=== PATIENT | female | born 1950 | race Caucasian/White ===

== ENCOUNTER → 2016-09-20 | Outpatient (CLI) | payer OTHER, MEDICARE ==
[~2016-09-20] MED LIST: ASPEC81 PO; ATEN-173 PO; CPR500 PO; EYED IO; FOLI1TAB7 PO; LPT40 PO; MTH25 PO; PRD/1 PO; PRED-301 PO
[2016-09-20 09:33] LABS: BASO % 0.4 %; BASO ABS # 0.03 K/uL (0-0.2); COMPLETE YES; EOS % 1.2 %; IG% 0.4 %; LYMPH % 31.4 %; MEAN CELL VOLUME 92.8 fL (80-100); MEAN CORPUSCULAR HEMOGLOBIN 29.7 pg (25-34); MEAN PLATELET VOLUME 11.3 fL (7.4-10.4); MONO % 5.6 %; PLATELET COUNT 187 K/uL (130-400); RED BLOOD COUNT 4.74 M/uL (4.2-5.4); WHITE BLOOD COUNT 7.33 K/uL (4.8-10.8)
[2016-09-20 10:04] LABS: ALT/SGPT 23 U/L (12-78); AST/SGOT 9 U/L (15-37); BLOOD UREA NITROGEN 23 mg/dl (7-18); BUN/CREATININE RATIO 20.5 (10-20); CALCIUM 8.5 mg/dl (8.5-10.1); CARBON DIOXIDE 30 mmol/L (21-32); CHLORIDE 107 mmol/L (98-107); GLUCOSE 92 mg/dl (70-99); GLUCOSE,FASTING 92 mg/dl (70-99); POTASSIUM 4.1 mmol/L (3.5-5.1); SODIUM 143 mmol/L (136-145)
[2016-09-20 10:06] LABS: ALKALINE PHOSPHATASE 88 U/L (45-117)
[2016-09-20 10:20] LABS: ESTIMATED AVERAGE GLUCOSE 123 mg/dl; HA1C FLAG Normal (Normal)
[2016-09-23 14:33] LABS: MYELOPEROXIDASE AB <1.0 AI (<1.0)
== END ==
LOC: C.LAB1850 08:30
PROVIDERS: ATTEND Family Medicine
DX: H15.091 Other scleritis, right eye (principal); Z79.899 Other long term (current) drug therapy; M31.7 Microscopic polyangiitis; R76.8 Other specified abnormal immunological findings in serum; R79.89 Other specified abnormal findings of blood chemistry

== ENCOUNTER → 2016-10-25 | Outpatient (CLI) | payer OTHER, MEDICARE ==
[2016-10-25 10:19] LABS: BASO % 0.3 %; BASO ABS # 0.02 K/uL (0-0.2); COMPLETE YES; EOS % 7.9 %; HEMATOCRIT 46.1 % (37-47); IG% 0.2 %; LYMPH % 21.6 %; LYMPH ABS # 1.32 K/uL (1.2-3.4); MEAN CELL VOLUME 94.3 fL (80-100); MEAN CORPUSCULAR HEMOGLOBIN 30.1 pg (25-34); MEAN CORPUSCULAR HGB CONC 31.9 g/dl (32-36); MEAN PLATELET VOLUME 11.6 fL (7.4-10.4); MONO % 6.5 %; NEUT % 63.5 %; PLATELET COUNT 183 K/uL (130-400); RED BLOOD COUNT 4.89 M/uL (4.2-5.4); WHITE BLOOD COUNT 6.11 K/uL (4.8-10.8)
[2016-10-25 10:33] LABS: ALT/SGPT 119 U/L (12-78)
[2016-10-25 10:36] LABS: ALKALINE PHOSPHATASE 102 U/L (45-117); AST/SGOT 130 U/L (15-37)
== END | disposition home or self-care (01) ==
LOC: C.LAB1850 09:16
PROVIDERS: ATTEND Internal Medicine Rheumatology
DX: H15.009 Unspecified scleritis, unspecified eye (principal); Z79.899 Other long term (current) drug therapy; M31.7 Microscopic polyangiitis; R76.8 Other specified abnormal immunological findings in serum

== ENCOUNTER → 2016-11-10 | Outpatient (CLI) | payer OTHER, MEDICARE ==
[2016-11-10 10:43] LABS: BASO % 0.5 %; BASO ABS # 0.03 K/uL (0-0.2); COMPLETE YES; EOS % 1.3 %; HEMATOCRIT 48.1 % (37-47); IG% 0.2 %; LYMPH % 33.1 %; LYMPH ABS # 2.06 K/uL (1.2-3.4); MEAN CELL VOLUME 94.7 fL (80-100); MEAN CORPUSCULAR HEMOGLOBIN 29.1 pg (25-34); MEAN CORPUSCULAR HGB CONC 30.8 g/dl (32-36); MEAN PLATELET VOLUME 11.8 fL (7.4-10.4); MONO % 8.2 %; NEUT % 56.7 %; PLATELET COUNT 223 K/uL (130-400); RED BLOOD COUNT 5.08 M/uL (4.2-5.4); WHITE BLOOD COUNT 6.22 K/uL (4.8-10.8)
== END | disposition home or self-care (01) ==
LOC: C.LAB1850 08:53
PROVIDERS: ATTEND Internal Medicine Rheumatology
DX: H15.091 Other scleritis, right eye (principal); Z79.899 Other long term (current) drug therapy; M31.7 Microscopic polyangiitis; R76.8 Other specified abnormal immunological findings in serum

== ENCOUNTER → 2016-12-21 | Outpatient (CLI) | payer OTHER, MEDICARE ==
[2016-12-21 13:27] LABS: BASO % 0.2 %; BASO ABS # 0.02 K/uL (0-0.2); COMPLETE YES; EOS % 0.8 %; HEMATOCRIT 44.5 % (37-47); IG% 0.2 %; LYMPH % 23.1 %; LYMPH ABS # 1.93 K/uL (1.2-3.4); MEAN CELL VOLUME 94.1 fL (80-100); MEAN CORPUSCULAR HGB CONC 31.9 g/dl (32-36); MEAN PLATELET VOLUME 11.5 fL (7.4-10.4); MONO % 6.2 %; NEUT % 69.5 %; PLATELET COUNT 232 K/uL (130-400); RED BLOOD COUNT 4.73 M/uL (4.2-5.4); WHITE BLOOD COUNT 8.35 K/uL (4.8-10.8)
[2016-12-21 13:59] LABS: ALKALINE PHOSPHATASE 85 U/L (45-117); ALT/SGPT 30 U/L (12-78); AST/SGOT 12 U/L (15-37)
== END | disposition home or self-care (01) ==
LOC: C.LAB1850 11:49
PROVIDERS: ATTEND Internal Medicine Rheumatology
DX: H15.091 Other scleritis, right eye (principal); M31.7 Microscopic polyangiitis; R76.8 Other specified abnormal immunological findings in serum

== ENCOUNTER 2017-01-20 17:16 | Inpatient (IN) | payer OTHER, MEDICARE ==
[~2017-01-20] VITALS: Ht 165.1 cm; Wt 140.4 kg
[~2017-01-20 17:16] MED LIST changes: -ASPEC81 PO; -CPR500 PO; -FOLI1TAB7 PO; -LPT40 PO; -MTH25 PO; -PRD/1 PO
--- NOTE | 2017-01-20 18:00 | EMERGENCY ROOM VISIT NOTE ---
History Report prepared by Sandro: Redd Florence Under the Supervision of: Dr. Romulo Dubon M.D. First contact with patient: 17:46 Chief Complaint: CONFUSION Stated Complaint: CONFUSED Nursing Triage Summary: Patient ambulatory to triage with her friend. Patient states "I can't..." Friend states "She knows what she wants to say but she can't express it in words. She called me around 0930 while she was at work. She kept saying things that didn't make since. She hadn't eaten so she had some cookies. That seemed to normalize her. After work, she went home and took a nap, waking up with the same symptoms." Patient is not a diabetic. Patient is able to follow all commands. Patient is hard of hearing. History of Present Illness This HPI is mildly limited secondary to the patient's confusion. The patient is a 66 year old white female who presents to the ED with a cc of confusion beginning this morning. She is unable to state her past medical history, but she is taking Methotrexate. She is not on blood thinners. At this time, the patient was talking on the phone with her friend and her friend noticed that the patient seemed confused. She was having difficulty finding her words that she wanted to say. Currently, the patient states she feels fine. Positive right eye mass and healed wound on left lower extremity for which the patient [facility]. Negative fevers, shortness of breath, cough, sore throat, neck pain, recent falls, nausea, vomiting, diarrhea, leg pain/edema, chest pain, weakness, or numbness. Source of History: patient, friend History Limited By: AMS Onset: this morning Position: other (Global) Symptom Intensity: moderate Quality: other (Word searching) Timing: constant Associated Symptoms: No fevers, No sorethroat, No cough, No neck pain, No chest pain, No SOB, No nausea, No vomiting, No abdominal pain, No melena, No hematochezia, No diarrhea, No urinary symptoms, No weakness, No numbness Note: She has a mass to her right eye, and a healing wound on her left lower extremity. Review of Systems See HPI for pertinent positives and negatives. A total of ten systems were reviewed and were otherwise negative. Past Medical & Surgical Medical Problems: (1) CVA (cerebral vascular accident) Unable to obtain secondary to the patient's confusion. Family History Omitted secondary to the patient's age. Social History Smoking Status: Never Smoker Drug Use: none Marital Status: Housing Status: lives alone Occupation Status: employed Current/Historical Medications Scheduled Atenolol (Tenormin), 25 MG PO DAILY Folic Acid (Folvite), 1 MG PO DAILY Methotrexate (Methotrexate), 7.5 MG PO DAILY Prednisone (Prednisone), 5 MG PO DAILY Prednisone (Prednisone), 4 MG PO DIRECTED Allergies Coded Allergies: No Known Allergies (Verified , 01/20/17) Physical Exam Vital Signs Date Time Temp Pulse Resp B/P (MAP) Pulse Ox O2 Delivery O2 Flow Rate FiO2 01/20/17 20:35 97 25 01/20/17 20:05 87 17 01/20/17 20:00 87 20 154/92 98 Room Air 01/20/17 19:58 01/20/17 19:30 87 16 94 01/20/17 19:00 85 17 94 01/20/17 18:39 82 20 157/95 97 Room Air 01/20/17 18:18 83 01/20/17 18:10 Room Air 01/20/17 17:35 36.8 103 20 175/111 98 Room Air Physical Exam GENERAL: Awake, alert, well-appearing, NAD, follows commands, right hand dominant. HENT: Normocephalic, atraumatic. EYES: Normal conjunctiva. Sclera non-icteric. EOMI, PERRL at about 3 mm's. Visual acuity intact grossly to finger counting. She has a 1 cm x 0.5 cm x 0.25 cm raised mass at the 5 o'clock position of the right eye. NECK: Supple. No nuchal rigidity. FROM. RESPIRATORY: CTAB, no rhonchi, wheezing, crackles CARDIAC: RRR, no MRG ABDOMEN: Soft, NTND, BS+ MSK: No chest wall TTP, severe LE lymphedema, healing stage 1 ulcer over the left [place], 2+ pitting edema bilaterally. NEURO: GCS 15, CN 2-12 intact, moves all 4s on command, EOMI, 5/5 strength in upper and lower extremities, good finger to nose, no pronator drift. SKIN: No rash or jaundice noted. Medical Decision & Procedures ER Provider Diagnostic Interpretation: Radiology results as stated below per my review and radiologist interpretation: HEAD WITHOUT CONTRAST (CT) CLINICAL HISTORY: 66 years-old Female presenting with word finding difficulties, inappropriate, R eye mass. TECHNIQUE: Multidetector CT imaging of the head was performed without the use of intravenous contrast. IV contrast: None. A dose lowering technique was used consistent with the principles of ALARA (as low as reasonably achievable). COMPARISON: None. CT DOSE (mGy.cm): The estimated cumulative dose is 720.95 mGycm. FINDINGS: Billboard Installer topogram: Unremarkable. Ventricles and sulci normal in size. Hypoattenuation in the posterior left temporal lobe and left parietal lobe which involves both the white matter and overlying cortex. Mild mass effect on regional sulci noted. No associated hemorrhage. No hyperdense vessel is appreciated. No midline shift. No hemorrhage. No extra-axial fluid collection. Absence of the [place] left lens. Focus of calcification at the bilateral optic discs without evidence of mass lesion. Paranasal sinuses and mastoid air cells clear. Calvarium intact. IMPRESSION: 1. Findings suggestive of acute infarct in the left middle cerebral artery territory infarction. No associated hemorrhage. The report will be called/faxed according to standard departmental protocol. Electronically signed by: Anthony Roth M.D. 01/20/2017 7:56 PM Dictated Date/Time: 01/20/2017 7:52 PM SINGLE VIEW CHEST CLINICAL HISTORY: Strokelike symptoms. FINDINGS: An AP, portable, upright chest radiograph is obtained. No prior studies are available for comparison at the time of dictation. The examination is degraded by portable technique and patient rotation. The the heart is top normal for projection. The pulmonary vasculature is noncongested. There is mild bibasilar atelectasis. The lungs and pleural spaces are otherwise clear. No pneumothorax is seen. The skeletal structures are osteopenic. The bony thorax is grossly intact. IMPRESSION: No active disease in the chest. Electronically signed by: Edmond Balderas M.D. 01/20/2017 6:23 PM Dictated Date/Time: 01/20/2017 6:23 PM NECK ANGIO WITH CONTRAST CLINICAL HISTORY: 66 years-old Female presenting with confusion, difficulty speaking, concern for stroke. TECHNIQUE: Multidetector CT angiography of the neck was performed after the administration of intravenous contrast. 3-D volumetric and/or maximum intensity projection (MIP) images were subsequently reconstructed for review. IV contrast: 120 mL of Optiray 320. A dose lowering technique was used consistent with the principles of ALARA (as low as reasonably achievable). All measurements were calculated based on NASCET-like criteria. COMPARISON: None. CT DOSE (mGy.cm): The estimated cumulative dose is 1135.78 mGycm. FINDINGS: Billboard Installer topogram: Unremarkable. Atherosclerosis of the aortic arch. Three-vessel arch configuration. Bilateral common carotid arteries widely patent. Calcified atherosclerotic plaque at the bilateral carotid bulbs. Nonsignificant narrowing of the proximal right internal carotid artery by calcified atherosclerotic plaque (less than 25%). Remainder of the course of the right internal carotid artery is widely patent. Nonsignificant narrowing of the proximal left internal carotid artery by noncalcified atherosclerotic plaque (less than 25%). Remainder of the course of the left internal carotid artery widely patent. Origins of the bilateral vertebral arteries patent. No significant narrowing along their courses. Codominant vertebral arteries contribute to the vertebrobasilar system. IMPRESSION: Atherosclerosis without evidence of significant narrowing. No evidence of dissection, aneurysm, or focal occlusion. Electronically signed by: Anthony Roth M.D. 01/20/2017 8:01 PM Dictated Date/Time: 01/20/2017 7:[address] ANGIOGRAM OF THE BRAIN CLINICAL HISTORY: Speech and word finding difficulties. COMPARISON STUDY: Unenhanced CT scan of the brain dated 01/20/2017. TECHNIQUE: Following the IV administration of 120 cc of Optiray 320, CT angiogram of the brain was performed from the skull base to the vertex. Images are reviewed in the axial, sagittal, and coronal planes. 3-D MIPS images are created and assessed. IV contrast was administered without complication. A dose lowering technique was utilized adhering to the principles of ALARA. FINDINGS: Brain parenchyma: There is minimal periventricular microangiopathic disease. There is loss of anderson-white matter differentiation identified in the left temporoparietal region suggesting acute to subacute ischemia. A chronic lacunar infarct is noted in the left cerebellar hemisphere. No hemorrhage or mass effect is identified. There is no evidence of enhancing mass lesion on the angiogram phase images. No extra-axial fluid collection is seen. Ventricles, sulci, and cisterns: Normal in configuration. CT angiogram of the brain: Atherosclerotic calcification is noted in the cavernous carotid arteries. The internal carotid arteries are widely patent, as are the anterior and middle cerebral arteries. The vertebrobasilar system and posterior cerebral arteries are widely patent. The left vertebral artery is dominant. There is no aneurysm, high-grade stenosis, or focal vessel cutoff identified throughout the intracranial circulation. Dural sinuses: Clear as visualized. Orbits: The bony orbits are intact. The orbital contents are normal as visualized. There is a left ocular lens implant. Sinuses and mastoids: Trace mucosal thickening is seen in the maxillary antra. The remaining paranasal sinuses and mastoid air cells are clear. Calvarium: Unremarkable. IMPRESSION: 1. There is loss of anderson-white matter differentiation in the left temporoparietal region consistent with acute to subacute ischemia. 2. No hemorrhage is seen. 3. Unremarkable CT angiogram of the brain. Electronically signed by: Edmond Balderas M.D. 01/20/2017 8:06 PM Dictated Date/Time: 01/20/2017 7:52 PM Laboratory Results 01/20/17 18:00 Red Blood Count 4.76, Mean Corpuscular Volume 96.6, Mean Corpuscular Hemoglobin 31.1, Mean Corpuscular Hemoglobin Concent 32.2, Mean Platelet Volume 11.2, Neutrophils (%) (Auto) 68.0, Lymphocytes (%) (Auto) 24.0, Monocytes (%) (Auto) 5.9, Eosinophils (%) (Auto) 1.7, Basophils (%) (Auto) 0.1, Neutrophils # (Auto) 4.88, Lymphocytes # (Auto) 1.72, Monocytes # (Auto) 0.42, Eosinophils # (Auto) 0.12, Basophils # (Auto) 0.01 01/20/17 18:00 Test 01/20/17 17:54 01/20/17 18:00 01/20/17 18:11 01/20/17 18:15 Bedside Glucose 97 mg/dl (70-90) White Blood Count 7.17 K/uL (4.8-10.8) Red Blood Count 4.76 M/uL (4.2-5.4) Hemoglobin 14.8 g/dL (12.0-16.0) Hematocrit 46.0 % (37-47) Mean Corpuscular Volume 96.6 fL (80-100) Mean Corpuscular Hemoglobin 31.1 pg (25-34) Mean Corpuscular Hemoglobin Concent 32.2 g/dl (32-36) Platelet Count 178 K/uL (130-400) Mean Platelet Volume 11.2 fL (7.4-10.4) Neutrophils (%) (Auto) 68.0 % Lymphocytes (%) (Auto) 24.0 % Monocytes (%) (Auto) 5.9 % Eosinophils (%) (Auto) 1.7 % Basophils (%) (Auto) 0.1 % Neutrophils # (Auto) 4.88 K/uL (1.4-6.5) Lymphocytes # (Auto) 1.72 K/uL (1.2-3.4) Monocytes # (Auto) 0.42 K/uL (0.11-0.59) Eosinophils # (Auto) 0.12 K/uL (0-0.5) Basophils # (Auto) 0.01 K/uL (0-0.2) RDW Standard Deviation 54.8 fL (36.4-46.3) RDW Coefficient of Variation 15.7 % (11.5-14.5) Immature Granulocyte % (Auto) 0.3 % Immature Granulocyte # (Auto) 0.02 K/uL (0.00-0.02) Anion Gap 5.0 mmol/L (3-11) Est Creatinine Clear Calc Drug Dose 64.2 ml/min Estimated GFR () 54.5 Estimated GFR (Non- 47.1 BUN/Creatinine Ratio 12.2 (10-20) Calcium Level 8.7 mg/dl (8.5-10.1) Total Bilirubin 0.8 mg/dl (0.2-1) Direct Bilirubin 0.2 mg/dl (0-0.2) Aspartate Amino Transf (AST/SGOT) 11 U/L (15-37) Alanine Aminotransferase (ALT/SGPT) 21 U/L (12-78) Alkaline Phosphatase 97 U/L (45-117) Total Protein 7.1 gm/dl (6.4-8.2) Albumin 3.3 gm/dl (3.4-5.0) Lipase 119 U/L (73-393) Lactic Acid Level 1.8 mmol/L (0.4-2.0) Bedside Troponin I < 0.030 ng/ml (0-0.045) Test 01/20/17 18:29 Venous Blood pH 7.40 (7.36-7.41) Venous Blood Partial Pressure CO2 46 mmHg (38.0-50.0) Venous Blood Partial Pressure O2 38 mmHg Venous Blood HCO3 28 mmol/L Venous Blood Oxygen Saturation 72.2 % Venous Blood Base Excess 2.2 mEq/L Laboratory results reviewed by me Medications Administered Medications (Trade) Dose Ordered Sig/Juan Route Start Time Stop Time Status Last Admin Dose Admin Aspirin (Aspirin Chew) 324 mg NOW STAT PO 01/20/17 20:09 01/20/17 20:10 DC 01/20/17 20:24 324 MG ECG Indication: altered mental status Rate (beats per minute): 90 Rhythm: normal sinus Findings: left axis deviation, other (Normal intervals, no other st abnormalities or t-wave inversions) ED Course 1745: The patient was evaluated in room A2. A complete history and physical exam was performed. 2008: I spoke [place]. José [place] [facility] [place]. We discussed the patient's case. He will be evaluating the patient for further management and care. Medical Decision The patient is a 66 year old white female who presents to the ED with a cc of confusion beginning this morning. Positive right eye mass and healed wound on left lower extremity for which the patient saw Dr. [facility]. Negative fevers, shortness of breath, cough, sore throat, neck pain, recent falls, nausea, vomiting, diarrhea, leg pain/edema, chest pain, weakness, or numbness. Triage Nursing notes reviewed. The patient's presentation and history were concerning for stroke, ICH, mass, metabolic abnormality, hyperglycemia, and UTI. Patient was seen and evaluated at the bedside. Of concern patient has had word finding difficulties since she spoke to a neighbor around 9:30 AM. Patient does seem to act in an inappropriate manner constantly laughing. Patient does have a GCS of 15 on commands. Patient's exam is fairly unremarkable although she does have again word finding difficulty and what appears to be an expressive aphasia. Also of note on physical exam patient is having a right eye mass that does not appear to be a pterygium. Patient was worked up from a stroke perspective but was well outside any sort of window for TPA as a code stroke was not called. Patient had imaging as well as blood work completed. Of note patient did have a CT that was concerning for an acute left MCA infarct without any hemorrhage. Patient's chest x-ray and troponin were negative. I spoke with the hospitalist who agreed the patient would benefit from further workup and admission. Patient was given a full dose aspirin. Medication Reconcilliation Current Medication List: was personally reviewed by me Blood Pressure Screening Patient's blood pressure: Elevated blood pressure Blood pressure disposition: Referred to PCP Consults Time Called: 2003 Consulting Physician: Dr. Estefanía KU Returned Call: 2007 Discussed the patient's case. The patient will be evaluated for further treatment and disposition. Impression Primary Impression: Acute ischemic left MCA stroke Additional Impressions: Confusion Expressive aphasia Scribe Attestation The scribe's documentation has been prepared under my direction and personally reviewed by me in its entirety. I confirm that the note above accurately reflects all work, treatment, procedures, and medical decision making performed by me. Departure Information Dispostion Being Evaluated By Hospitalist Referrals No Doctor, Assigned (PCP) Patient Instructions My [facility] Problem Qualifiers
--- NOTE | 2017-01-20 18:25 | DIAGNOSTIC IMAGING REPORT ---
SINGLE VIEW CHEST CLINICAL HISTORY: Strokelike symptoms. FINDINGS: An AP, portable, upright chest radiograph is obtained. No prior studies are available for comparison at the time of dictation. The examination is degraded by portable technique and patient rotation. The the heart is top normal for projection. The pulmonary vasculature is noncongested. There is mild bibasilar atelectasis. The lungs and pleural spaces are otherwise clear. No pneumothorax is seen. The skeletal structures are osteopenic. The bony thorax is grossly intact. IMPRESSION: No active disease in the chest. Electronically signed by: Edmond Balderas M.D. 01/20/2017 6:23 PM Dictated Date/Time: 01/20/2017 6:23 PM
[2017-01-20 18:39] LABS: VEN BLD GAS O2 SATURATION 72.2 %; VEN BLOOD GAS BASE EXCESS 2.2 mEq/L
[2017-01-20] MEDS ORDERED: PRD/1 PO (18:42)
[2017-01-20] MEDS ORDERED: MTH25 PO (18:42)
[2017-01-20] MEDS ORDERED: FOLI1TAB7 PO (18:42)
[2017-01-20 18:45] LABS: BUN/CREATININE RATIO 12.2 (10-20); CALCIUM 8.7 mg/dl (8.5-10.1); CREATININE 1.2 mg/dl (0.60-1.20); POTASSIUM 3.8 mmol/L (3.5-5.1)
[2017-01-20] MEDS ORDERED: OPTIRAY 320 IV PRN (18:45)
[2017-01-20 19:56] LABS: BASO % 0.1 %; BASO ABS # 0.01 K/uL (0-0.2); COMPLETE YES; EOS % 1.7 %; IG% 0.3 %; LYMPH ABS # 1.72 K/uL (1.2-3.4); MEAN CELL VOLUME 96.6 fL (80-100); MEAN CORPUSCULAR HEMOGLOBIN 31.1 pg (25-34); MEAN CORPUSCULAR HGB CONC 32.2 g/dl (32-36); MEAN PLATELET VOLUME 11.2 fL (7.4-10.4); MONO % 5.9 %; PLATELET COUNT 178 K/uL (130-400); RED BLOOD COUNT 4.76 M/uL (4.2-5.4); WHITE BLOOD COUNT 7.17 K/uL (4.8-10.8)
--- NOTE | 2017-01-20 19:57 | DIAGNOSTIC IMAGING REPORT ---
HEAD WITHOUT CONTRAST (CT) CLINICAL HISTORY: 66 years-old Female presenting with word finding difficulties, inappropriate, R eye mass. TECHNIQUE: Multidetector CT imaging of the head was performed without the use of intravenous contrast. IV contrast: None. A dose lowering technique was used consistent with the principles of ALARA (as low as reasonably achievable). COMPARISON: None. CT DOSE (mGy.cm): The estimated cumulative dose is 720.95 mGycm. FINDINGS: Construction Project Manager topogram: Unremarkable. Ventricles and sulci normal in size. Hypoattenuation in the posterior left temporal lobe and left parietal lobe which involves both the white matter and overlying cortex. Mild mass effect on regional sulci noted. No associated hemorrhage. No hyperdense vessel is appreciated. No midline shift. No hemorrhage. No extra-axial fluid collection. Absence of the [place] left lens. Focus of calcification at the bilateral optic discs without evidence of mass lesion. Paranasal sinuses and mastoid air cells clear. Calvarium intact. IMPRESSION: 1. Findings suggestive of acute infarct in the left middle cerebral artery territory infarction. No associated hemorrhage. The report will be called/faxed according to standard departmental protocol. Electronically signed by: Anthony Roth M.D. 01/20/2017 7:56 PM Dictated Date/Time: 01/20/2017 7:52 PM
--- NOTE | 2017-01-20 20:03 | DIAGNOSTIC IMAGING REPORT ---
NECK ANGIO WITH CONTRAST CLINICAL HISTORY: 66 years-old Female presenting with confusion, difficulty speaking, concern for stroke. TECHNIQUE: Multidetector CT angiography of the neck was performed after the administration of intravenous contrast. 3-D volumetric and/or maximum intensity projection (MIP) images were subsequently reconstructed for review. IV contrast: 120 mL of Optiray 320. A dose lowering technique was used consistent with the principles of ALARA (as low as reasonably achievable). All measurements were calculated based on NASCET-like criteria. COMPARISON: None. CT DOSE (mGy.cm): The estimated cumulative dose is 1135.78 mGycm. FINDINGS: Food Preparation Supervisor topogram: Unremarkable. Atherosclerosis of the aortic arch. Three-vessel arch configuration. Bilateral common carotid arteries widely patent. Calcified atherosclerotic plaque at the bilateral carotid bulbs. Nonsignificant narrowing of the proximal right internal carotid artery by calcified atherosclerotic plaque (less than 25%). Remainder of the course of the right internal carotid artery is widely patent. Nonsignificant narrowing of the proximal left internal carotid artery by noncalcified atherosclerotic plaque (less than 25%). Remainder of the course of the left internal carotid artery widely patent. Origins of the bilateral vertebral arteries patent. No significant narrowing along their courses. Codominant vertebral arteries contribute to the vertebrobasilar system. IMPRESSION: Atherosclerosis without evidence of significant narrowing. No evidence of dissection, aneurysm, or focal occlusion. Electronically signed by: Anthony Roth M.D. 01/20/2017 8:01 PM Dictated Date/Time: 01/20/2017 7:56 PM
--- NOTE | 2017-01-20 20:08 | DIAGNOSTIC IMAGING REPORT ---
CT ANGIOGRAM OF THE BRAIN CLINICAL HISTORY: Speech and word finding difficulties. COMPARISON STUDY: Unenhanced CT scan of the brain dated 01/20/2017. TECHNIQUE: Following the IV administration of 120 cc of Optiray 320, CT angiogram of the brain was performed from the skull base to the vertex. Images are reviewed in the axial, sagittal, and coronal planes. 3-D MIPS images are created and assessed. IV contrast was administered without complication. A dose lowering technique was utilized adhering to the principles of ALARA. FINDINGS: Brain parenchyma: There is minimal periventricular microangiopathic disease. There is loss of anderson-white matter differentiation identified in the left temporoparietal region suggesting acute to subacute ischemia. A chronic lacunar infarct is noted in the left cerebellar hemisphere. No hemorrhage or mass effect is identified. There is no evidence of enhancing mass lesion on the angiogram phase images. No extra-axial fluid collection is seen. Ventricles, sulci, and cisterns: Normal in configuration. CT angiogram of the brain: Atherosclerotic calcification is noted in the cavernous carotid arteries. The internal carotid arteries are widely patent, as are the anterior and middle cerebral arteries. The vertebrobasilar system and posterior cerebral arteries are widely patent. The left vertebral artery is dominant. There is no aneurysm, high-grade stenosis, or focal vessel cutoff identified throughout the intracranial circulation. Dural sinuses: Clear as visualized. Orbits: The bony orbits are intact. The orbital contents are normal as visualized. There is a left ocular lens implant. Sinuses and mastoids: Trace mucosal thickening is seen in the maxillary antra. The remaining paranasal sinuses and mastoid air cells are clear. Calvarium: Unremarkable. IMPRESSION: 1. There is loss of anderson-white matter differentiation in the left temporoparietal region consistent with acute to subacute ischemia. 2. No hemorrhage is seen. 3. Unremarkable CT angiogram of the brain. Electronically signed by: Edmond Balderas M.D. 01/20/2017 8:06 PM Dictated Date/Time: 01/20/2017 7:52 PM
[2017-01-20] MEDS ORDERED: ASPIRIN 81 MG CHEW PO STA (20:09)
[2017-01-20] MEDS ORDERED: MAGNESIUM HYDROXIDE SUSP 30 ML UDC PO PRN (20:45)
[2017-01-20] MEDS ORDERED: ALUMINUM/MAGNESIUM/SIMETH (MAALOX MAX) 30 ML UDC PO PRN (20:45)
[2017-01-20] MEDS ORDERED: POLYETHYLENE (MIRALAX) 17 GM PACK PO PRN (20:45)
[2017-01-20] MEDS ORDERED: ONDANSETRON INJ 2 MG/ML 2 ML VIAL IV PRN (20:45)
[2017-01-20] MEDS ORDERED: ACETAMINOPHEN 325 MG TAB PO PRN (20:45)
[2017-01-20] MEDS ORDERED: PHARMACIST DISCHARGE MED REC CONSULT PRN (21:00)
--- NOTE | 2017-01-20 21:55 | History and Physical ---
History & Physical Date & Time of Service: Jan 20, 2017 at 21:36 Chief Complaint: Confused Primary Care Physician: Pati Mcclellan MD History of Present Illness Source: patient 66 y/o F Hx RA, HTN, morbid obesity. Pt presents with acute dysphagia which occurred during the AM. She is having considerable difficulty with word finding although her comprehension appears only minimally impaired. She denies unilateral weakness, visual disturbances, headache, CP, SOB or palpitations. She has no history of prior CVA. A CT obtained in the ER reveals an acute L temporoparietal CVA. The pt was well out of the window for TPA on arrival to the hospital. Past Medical/Surgical History 1) HTN 2) RA 3) Morbidly obese Social History Smoking Status: Never Smoker Drug Use: none Marital Status: Occupational Status: employed Allergies Coded Allergies: No Known Allergies (Verified , 01/20/17) Home Medications Scheduled Atenolol (Tenormin), 25 MG PO DAILY Folic Acid (Folvite), 1 MG PO DAILY Methotrexate (Methotrexate), 7.5 MG PO DAILY Prednisone (Prednisone), 5 MG PO DAILY Prednisone (Prednisone), 4 MG PO DIRECTED Review of Systems Constitutional: No fever, No chills, No sweats Eyes: No worsening of vision, No eye pain ENT: No hearing loss, No unusual epistaxis, No nasal symptoms Respiratory: No cough, No sputum, No wheezing Cardiovascular: No chest pain, No orthopnea, No PND Abdomen: No pain, No nausea, No vomiting Musculoskeletal: No joint pain Genitourinary - Female: No dysuria, No urinary frequency, No urinary urgency, No urinary incontinence, No urinary retention, No hematuria Neurologic: + problem reported (Acute dysphasia), No memory loss, No paralysis , No weakness Psychiatric: No depression symptoms Endocrine: No fatigue Hematologic / Lymphatic: No abnormal bleeding/bruising Integumentary: No rash Allergic / Immunologic: No environmental allergies Physical Exam Vital Signs Date Time Temp Pulse Resp B/P (MAP) Pulse Ox O2 Delivery O2 Flow Rate FiO2 01/20/17 20:00 87 20 154/92 98 Room Air 01/20/17 19:58 01/20/17 19:30 87 16 94 01/20/17 19:00 85 17 94 01/20/17 18:39 82 20 157/95 97 Room Air 01/20/17 18:18 83 01/20/17 18:10 Room Air 01/20/17 17:35 36.8 103 20 175/111 98 Room Air General Appearance: WD/WN, no apparent distress, + pertinent finding (She cannot answer correctly to assess orientation - she can follow physical commands with some hesitation but cannot properly express herself - there are no additional motor or sensory deficits) Head: normocephalic Eyes: normal inspection ENT: normal ENT inspection, hearing grossly normal, TMs normal, pharynx normal Neck: supple, no JVD Respiratory/Chest: chest non-tender, lungs clear, normal breath sounds, no respiratory distress, no accessory muscle use Cardiovascular: regular rate, rhythm, no edema, no gallop, no JVD, no murmur, normal peripheral pulses Abdomen/GI: normal bowel sounds, non tender, soft Back: normal inspection, no CVA tenderness, no muscle spasm Extremities/Musculoskelatal: normal inspection, no calf tenderness, normal capillary refill, no pedal edema, normal range of motion Neurologic/Psych: + pertinent finding Skin: normal color, warm/dry, no rash Diagnostics Laboratory Results Results Past 24 Hours Test 01/20/17 17:54 01/20/17 18:00 01/20/17 18:11 01/20/17 18:15 Range/Units Bedside Glucose 97 70-90 mg/dl White Blood Count 7.17 4.8-10.8 K/uL Red Blood Count 4.76 4.2-5.4 M/uL Hemoglobin 14.8 12.0-16.0 g/dL Hematocrit 46.0 37-47 % Mean Corpuscular Volume 96.6 80-100 fL Mean Corpuscular Hemoglobin 31.1 25-34 pg Mean Corpuscular Hemoglobin Concent 32.2 32-36 g/dl Platelet Count 178 130-400 K/uL Mean Platelet Volume 11.2 7.4-10.4 fL Neutrophils (%) (Auto) 68.0 % Lymphocytes (%) (Auto) 24.0 % Monocytes (%) (Auto) 5.9 % Eosinophils (%) (Auto) 1.7 % Basophils (%) (Auto) 0.1 % Neutrophils # (Auto) 4.88 1.4-6.5 K/uL Lymphocytes # (Auto) 1.72 1.2-3.4 K/uL Monocytes # (Auto) 0.42 0.11-0.59 K/uL Eosinophils # (Auto) 0.12 0-0.5 K/uL Basophils # (Auto) 0.01 0-0.2 K/uL RDW Standard Deviation 54.8 36.4-46.3 fL RDW Coefficient of Variation 15.7 11.5-14.5 % Immature Granulocyte % (Auto) 0.3 % Immature Granulocyte # (Auto) 0.02 0.00-0.02 K/uL Sodium Level 139 136-145 mmol/L Potassium Level 3.8 3.5-5.1 mmol/L Chloride Level 105 98-107 mmol/L Carbon Dioxide Level 29 21-32 mmol/L Anion Gap 5.0 3-11 mmol/L Blood Urea Nitrogen 15 7-18 mg/dl Creatinine 1.20 0.60-1.20 mg/dl Est Creatinine Clear Calc Drug Dose 64.2 ml/min Estimated GFR () 54.5 Estimated GFR (Non- 47.1 BUN/Creatinine Ratio 12.2 10-20 Random Glucose 100 70-99 mg/dl Calcium Level 8.7 8.5-10.1 mg/dl Total Bilirubin 0.8 0.2-1 mg/dl Direct Bilirubin 0.2 0-0.2 mg/dl Aspartate Amino Transf (AST/SGOT) 11 15-37 U/L Alanine Aminotransferase (ALT/SGPT) 21 12-78 U/L Alkaline Phosphatase 97 45-117 U/L Total Protein 7.1 6.4-8.2 gm/dl Albumin 3.3 3.4-5.0 gm/dl Lipase 119 73-393 U/L Lactic Acid Level 1.8 0.4-2.0 mmol/L Bedside Troponin I < 0.030 0-0.045 ng/ml Test 01/20/17 18:29 Range/Units Venous Blood pH 7.40 7.36-7.41 Venous Blood Partial Pressure CO2 46 38.0-50.0 mmHg Venous Blood Partial Pressure O2 38 mmHg Venous Blood HCO3 28 mmol/L Venous Blood Oxygen Saturation 72.2 % Venous Blood Base Excess 2.2 mEq/L Diagnostic Radiology CTA 1. There is loss of anderson-white matter differentiation in the left temporoparietal region consistent with acute to subacute ischemia. 2. No hemorrhage is seen. 3. Unremarkable CT angiogram of the brain. EKG NSR - L axis Impression Assessment and Plan 66 y/o F Hx RA, HTN, morbid obesity. Pt presents with acute dysphagia which occurred during the AM. She is having considerable difficulty with word finding although her comprehension appears only minimally impaired. She denies unilateral weakness, visual disturbances, headache, CP, SOB or palpitations. She has no history of prior CVA. A CT obtained in the ER reveals an acute L temporoparietal CVA. The pt was well out of the window for TPA on arrival to the hospital. 1) CVA - findings are confirmed on CTA - she is admitted with a CVA protocol - provided with ASA and Statin. She will be evaluated by the neurologist AM. No further studies are ordered for AM due to ER workup. Speech therapy requested. 2) RA - cont Prednisone - Can resume MTx on DC 3) HTN - Atenolol held in setting of CVA 4) Obesity - would benefit from nutritional counseling Full code - Heparin prophylaxis - total time for this admit including review of labs, meds, EKG, imaging - discussion with pt and ER attending - 35 min Level of Care Telemetry Resuscitation Status FULL RESUSCITATION VTE Prophylaxis VTE Risk Assessment Done? Y/N: Yes Risk Level: Moderate Given or contraindicated: Unfractionated heparin SQ
[2017-01-20 23:40] VITALS: Ht 165.1 cm; Wt 140.4 kg
[2017-01-20 23:44] VITALS: BP 164/93; PULSE 83; TEMP 36.9; O2SAT 95
[2017-01-21] VITALS (9 sets, daily range): BP systolic 126–183; BP diastolic 79–105; PULSE 74–91; TEMP 36.5–37.2; O2SAT 95–99
[2017-01-21 03:43] LABS: BASO % 0.2 %; BASO ABS # 0.01 K/uL (0-0.2); COMPLETE YES; EOS % 1.7 %; HEMATOCRIT 39.5 % (37-47); IG% 0.2 %; LYMPH % 27.7 %; MEAN CELL VOLUME 96.8 fL (80-100); MEAN CORPUSCULAR HEMOGLOBIN 31.9 pg (25-34); MEAN CORPUSCULAR HGB CONC 32.9 g/dl (32-36); MEAN PLATELET VOLUME 11.3 fL (7.4-10.4); MONO % 8.3 %; NEUT % 61.9 %; PLATELET COUNT 165 K/uL (130-400); RED BLOOD COUNT 4.08 M/uL (4.2-5.4); WHITE BLOOD COUNT 5.78 K/uL (4.8-10.8)
[2017-01-21 03:53] LABS: PARTIAL THROMBOPLASTIN RATIO 0.9; PROTHROMBIN TIME (PATIENT) 10.5 SECONDS (9.0-12.0)
[2017-01-21 03:59] LABS: BUN/CREATININE RATIO 11.6 (10-20); CALCIUM 8.4 mg/dl (8.5-10.1); CREATININE 1.1 mg/dl (0.60-1.20); POTASSIUM 4.6 mmol/L (3.5-5.1)
[2017-01-21 04:07] LABS: CHOLESTEROL/HDL RATIO 3.4
[2017-01-21] MEDS: HEPARIN SOD 5000 UNIT/0.5 ML CARP SQ SCH ×3 (05:52→21:47)
[2017-01-21 07:09] LABS: ESTIMATED AVERAGE GLUCOSE 126 mg/dl; HA1C FLAG Normal (Normal)
[2017-01-21] MEDS: ASPIRIN 325 MG ECTAB PO SCH (08:08)
[2017-01-21] MEDS: ATORVASTATIN 40 MG TAB PO SCH (08:08)
--- NOTE | 2017-01-21 09:40 | Neurology Consultation ---
Neurology Consultation Date of Consultation: Jan 21, 2017. Attending Physician: Gary José M.D. Primary Care Physician: Pati Mcclellan MD Reason for Consultation: Stroke History of Present Illness Source: hospital records The patient is a 66-year-old female who presented to the emergency department yesterday for further evaluation of acute onset word finding difficulty that occurred while she was speaking with a friend on the phone. She was found to have some difficulty with expressive speech but did not have associated weakness or other obvious neurological abnormalities at the time of her initial assessment in the emergency department. This patient's past medical history is significant for rheumatoid arthritis for which she is prescribed prednisone and methotrexate. History also significant for hypertension. Electrocardiogram revealed normal sinus rhythm with a heart rate of [address] of the head revealed no acute left MCA infarct involving parts of the left temporal and left parietal lobe extending to the cortex. I reviewed the images as well as the radiologist's interpretation of this study. There is no evidence of associated hemorrhage or edema. CT angiography of the head and neck were also completed and are unremarkable. No evidence of large vessel stenosis or occlusion. The patient continues to exhibit difficulty with expressive speech this morning and is unable to relay a reliable history of present illness. Past Medical/Surgical History Medical Problems: (1) Acute ischemic left MCA stroke Status: Acute (2) Confusion Status: Acute (3) Expressive aphasia Status: Acute (4) Laceration of lower extremity Status: Acute Family History The patient is unable to provide details regarding her family history in light of her aphasia Social History Drug Use: none Marital Status: Housing Status: lives alone Occupation Status: employed Allergies Coded Allergies: No Known Allergies (Verified , 01/20/17) Current Inpatient Medications Current Inpatient Medications Medications (Trade) Dose Ordered Sig/Juan Route Start Time Stop Time Status Last Admin Dose Admin Ioversol (Optiray 320) 100 ml UD PRN IV 01/20/17 18:45 01/24/17 18:44 Heparin Sodium (Porcine) (Heparin Sq 5000 Unit/0.5ml) 5,000 unit Q8 SQ 01/21/17 06:00 02/20/17 05:59 01/21/17 05:52 5,000 UNIT Acetaminophen (Tylenol Tab) 650 mg Q4H PRN PO 01/20/17 20:45 02/19/17 20:44 Al Hydrox/Mg Hydrox/Simethicone (Maalox Max Susp) 15 ml Q4H PRN PO 01/20/17 20:45 02/19/17 20:44 Magnesium Hydroxide (Milk Of Magnesia Susp) 30 ml Q12H PRN PO 01/20/17 20:45 02/19/17 20:44 Ondansetron HCl (Zofran Inj) 4 mg Q6H PRN IV 01/20/17 20:45 02/19/17 20:44 Aspirin (Ecotrin Tab) 325 mg QAM PO 01/21/17 09:00 02/20/17 08:59 01/21/17 08:08 325 MG Polyethylene (Miralax Powder Packet) 17 gm DAILY PRN PO 01/20/17 20:45 02/19/17 20:44 Atorvastatin Calcium (Lipitor Tab) 40 mg QAM PO 01/21/17 09:00 02/20/17 08:59 01/21/17 08:08 40 MG Miscellaneous Information (Pharmacist Discharge Med Rec Consult) 1 ea UD PRN N/A 01/20/17 21:00 02/19/17 20:59 Folic Acid (Folvite Tab) 1 mg DAILY PO 01/21/17 09:00 02/20/17 08:59 01/21/17 08:08 1 MG Prednisone (PredniSONE TAB) 5 mg DAILY PO 01/21/17 09:00 02/20/17 08:59 01/21/17 08:08 5 MG Review of Systems The patient is unable to provide reliable responses to questions pertaining to the review of systems in light of her aphasia which seems to affect both word finding and comprehension to a degree. Physical Exam Vital Signs (Past 24 Hrs): Date Time Temp Pulse Resp B/P (MAP) Pulse Ox O2 Delivery O2 Flow Rate FiO2 01/21/17 09:00 79 96 01/21/17 07:06 36.5 90 18 171/103 (125) 95 Room Air 01/21/17 04:21 36.9 74 18 126/79 (95) 99 Room Air 01/21/17 04:00 Room Air 01/20/17 23:44 36.9 83 20 164/93 (116) 95 Room Air 01/20/17 23:40 Room Air 01/20/17 23:05 82 16 01/20/17 22:35 85 15 149/82 96 Room Air 01/20/17 22:05 81 16 01/20/17 21:35 88 19 01/20/17 21:05 83 16 01/20/17 20:35 97 25 01/20/17 20:05 87 17 01/20/17 20:00 87 20 154/92 98 Room Air 01/20/17 19:58 01/20/17 19:30 87 16 94 01/20/17 19:00 85 17 94 01/20/17 18:39 82 20 157/95 97 Room Air 01/20/17 18:18 83 01/20/17 18:10 Room Air 01/20/17 17:35 36.8 103 20 175/111 98 Room Air The patient is a well-developed, well-nourished, elderly female. She is lying comfortably in bed. She is somewhat jocular and laughs spontaneously with attempts at providing answers to questions. Memory cannot be assessed due to her aphasia. Attention is normal. The patient has significant difficulty with object naming. She is able to read simple text although does so quite slowly. She follows simple commands but seems to have some difficulty with comprehension as well. She correctly distinguishes left from right. She had mild difficulty performing simple calculations. Fund of knowledge and vocabulary cannot be reliably assessed in light of her aphasia. Visual yang grossly full to confrontation. There is decreased visual acuity for the right eye which has an associated tumor-like abnormality affecting the sclera of the right globe. Pupils equal round and reactive to light. Eye movements normal. Facial sensation intact bilaterally. There is normal facial symmetry and strength. No facial droop. Hearing intact to finger rub bilaterally. Palate elevates to midline. Shoulder shrug intact. Tongue protrudes to midline. Sensation intact in all 4 limbs to vibration, temperature, light touch, and proprioception. Deep tendon reflexes are intact and symmetrical for the arms and legs. Plantar responses downgoing. There is no dysdiadochokinesia or dysmetria with finger to nose or heel to powell bilaterally. The optic disc were the right eye cannot be adequately visualized. The optic disc and posterior segment for the left eye appears normal. No papilledema or hemorrhages. Carotid pulses normal bilaterally, no bruits to auscultation. Gait and station normal. Muscle strength and tone normal for the arms and legs bilaterally. No atrophy. No abnormal movements appreciated. Laboratory Results Past 24 Hours: 01/21/17 02:50 Red Blood Count 4.08, Mean Corpuscular Volume 96.8, Mean Corpuscular Hemoglobin 31.9, Mean Corpuscular Hemoglobin Concent 32.9, Mean Platelet Volume 11.3, Neutrophils (%) (Auto) 61.9, Lymphocytes (%) (Auto) 27.7, Monocytes (%) (Auto) 8.3, Eosinophils (%) (Auto) 1.7, Basophils (%) (Auto) 0.2, Neutrophils # (Auto) 3.58, Lymphocytes # (Auto) 1.60, Monocytes # (Auto) 0.48, Eosinophils # (Auto) 0.10, Basophils # (Auto) 0.01 01/21/17 02:50 Test 01/20/17 17:54 01/20/17 18:00 01/20/17 18:11 01/20/17 18:15 Bedside Glucose 97 mg/dl (70-90) Estimated Average Glucose 126 mg/dl Hemoglobin A1c 6.0 % (4.5-5.6) Total Bilirubin 0.8 mg/dl (0.2-1) Direct Bilirubin 0.2 mg/dl (0-0.2) Aspartate Amino Transf (AST/SGOT) 11 U/L (15-37) Alanine Aminotransferase (ALT/SGPT) 21 U/L (12-78) Alkaline Phosphatase 97 U/L (45-117) Total Protein 7.1 gm/dl (6.4-8.2) Albumin 3.3 gm/dl (3.4-5.0) Lipase 119 U/L (73-393) Lactic Acid Level 1.8 mmol/L (0.4-2.0) Bedside Troponin I < 0.030 ng/ml (0-0.045) Test 01/20/17 18:29 01/21/17 02:50 Venous Blood pH 7.40 (7.36-7.41) Venous Blood Partial Pressure CO2 46 mmHg (38.0-50.0) Venous Blood Partial Pressure O2 38 mmHg Venous Blood HCO3 28 mmol/L Venous Blood Oxygen Saturation 72.2 % Venous Blood Base Excess 2.2 mEq/L White Blood Count 5.78 K/uL (4.8-10.8) Red Blood Count 4.08 M/uL (4.2-5.4) Hemoglobin 13.0 g/dL (12.0-16.0) Hematocrit 39.5 % (37-47) Mean Corpuscular Volume 96.8 fL (80-100) Mean Corpuscular Hemoglobin 31.9 pg (25-34) Mean Corpuscular Hemoglobin Concent 32.9 g/dl (32-36) Platelet Count 165 K/uL (130-400) Mean Platelet Volume 11.3 fL (7.4-10.4) Neutrophils (%) (Auto) 61.9 % Lymphocytes (%) (Auto) 27.7 % Monocytes (%) (Auto) 8.3 % Eosinophils (%) (Auto) 1.7 % Basophils (%) (Auto) 0.2 % Neutrophils # (Auto) 3.58 K/uL (1.4-6.5) Lymphocytes # (Auto) 1.60 K/uL (1.2-3.4) Monocytes # (Auto) 0.48 K/uL (0.11-0.59) Eosinophils # (Auto) 0.10 K/uL (0-0.5) Basophils # (Auto) 0.01 K/uL (0-0.2) RDW Standard Deviation 54.7 fL (36.4-46.3) RDW Coefficient of Variation 15.7 % (11.5-14.5) Immature Granulocyte % (Auto) 0.2 % Immature Granulocyte # (Auto) 0.01 K/uL (0.00-0.02) Prothrombin Time 10.5 SECONDS (9.0-12.0) Prothromb Time International Ratio 1.0 (0.9-1.1) Activated Partial Thromboplast Time 23.6 SECONDS (21.0-31.0) Partial Thromboplastin Ratio 0.9 Anion Gap 5.0 mmol/L (3-11) Est Creatinine Clear Calc Drug Dose 73.3 ml/min Estimated GFR () 60.6 Estimated GFR (Non- 52.3 BUN/Creatinine Ratio 11.6 (10-20) Calcium Level 8.4 mg/dl (8.5-10.1) Triglycerides Level 163 mg/dl (0-150) Cholesterol Level 144 mg/dl (0-200) HDL Cholesterol 42 mg/dl LDL Cholesterol, Calculated 69 mg/dl VLDL Cholesterol, Calculated 33 mg/dl Cholesterol/HDL Ratio 3.4 Impression Acute left MCA territory infarct involving elements of the left parietal and temporal lobe extending to the cortex and producing an aphasia without associated hemiparesis. There is no evidence of large vessel thrombosis or occlusive lesion on CT angiography of the head or neck distribution in size of stroke seems suggestive of an embolic etiology. No known history of atrial fibrillation, however. Other potential etiologies including thrombophilia and PFO not excluded. Plan An MRI of the brain would be useful if possible. However, it appears as if this order was canceled for some reason. If the patient is unable to have a brain MRI then I would recommend a repeat CT of the head to be completed this evening to assess the evolution and extent of her acute infarct. Again, a brain MRI would be preferred if possible. This patient should also have a trans-thoracic echocardiogram with bubble study to evaluate for possible PFO. If the results are inconclusive that it may be of value to proceed with a transesophageal echocardiogram. A hypercoagulable/thrombophilia profile should also be obtained in this patient including lupus anticoagulant and other related labs Consultations with speech therapy/PT/OT I agree with use of daily aspirin for stroke risk reduction unless an indication for anticoagulation such as atrial fibrillation is identified. I've no further immediate recommendations for this patient. Please contact me if I may be of further assistance.
--- NOTE | 2017-01-21 14:35 | DIAGNOSTIC IMAGING REPORT ---
CT HEAD WITHOUT CONTRAST (CT) CLINICAL HISTORY: Stroke. Follow-up study. COMPARISON STUDY: Noncontrast head CT dated 01/20/2017 TECHNIQUE: Axial CT of the brain is performed from the vertex to the skull base. IV contrast was not administered for this examination. A dose lowering technique was utilized adhering to the principles of ALARA. CT DOSE: 537.48 mGy.cm FINDINGS: No intra or extra-axial mass lesions are visualized. There is a left parietal hypodensity, consistent with a acute/subacute infarct there is no evidence of acute hemorrhage. There is no evidence of midline shift.. This remain similar in appearance to the prior study. There are patchy white matter hypodensities likely on a small vessel basis. There is a stable lacunar infarct within the left cerebellar hemisphere. There is no evidence of pathologic ventricular dilatation. There is no evidence of acute sinusitis IMPRESSION: 1. No change from the preceding study. No change in the appearance of the left parietal lobe infarct. No evidence of acute hemorrhage. Electronically signed by: Jamaal De Guzman M.D. 01/21/2017 2:33 PM Dictated Date/Time: 01/21/2017 2:31 PM
--- NOTE | 2017-01-21 20:08 | Hospitalist Progress Note ---
Hospitalist Progress Note Date of Service Jan 21, 2017. Subjective Pt evaluation today including: conversation w/ patient, physical exam, conversation w/ application support consultant (Neuro) Pt still having significant difficulty finding the right words and often replacing words. Friends present with her confirm that she is not normally like this. She has perfect understanding of what I explain to her about her condition. She refused MRI today and says she would absolutely refuse NATE -she is terrified of any procedures. SHe has never had a colonoscopy because of this. SHe has never had GI bleeding and no h/o any serious bleeding. Denies any h/o SOB, CP, palpitations or rapid heart beat All Other Systems: Reviewed and Negative Objective Vital Signs No events on telemetry, remains in NSR Date Time Temp Pulse Resp B/P (MAP) Pulse Ox O2 Delivery O2 Flow Rate FiO2 01/21/17 15:42 37.2 84 18 133/83 (100) 95 Room Air 01/21/17 12:30 Room Air 01/21/17 11:30 36.6 85 20 174/105 (128) 97 183/92 (122) 01/21/17 09:00 79 96 01/21/17 07:45 Room Air 01/21/17 07:06 36.5 90 18 171/103 (125) 95 Room Air 01/21/17 04:21 36.9 74 18 126/79 (95) 99 Room Air 01/21/17 04:00 Room Air 01/20/17 23:44 36.9 83 20 164/93 (116) 95 Room Air 01/20/17 23:40 Room Air 01/20/17 23:05 82 16 01/20/17 22:35 85 15 149/82 96 Room Air 01/20/17 22:05 81 16 01/20/17 21:35 88 19 01/20/17 21:05 83 16 01/20/17 20:35 97 25 01/20/17 20:05 87 17 01/20/17 20:00 87 20 154/92 98 Room Air Physical Exam General Appearance: WD/WN, no apparent distress, + obese (sitting in chair) Eyes: + pertinent finding (right eye with large medial mass in sclera with blue -brown coloration) ENT: hearing grossly normal, pharynx normal Neck: trachea midline Respiratory/Chest: lungs clear, normal breath sounds, no respiratory distress, no accessory muscle use Cardiovascular: regular rate, rhythm, no edema, no gallop, no murmur Abdomen: normal bowel sounds, non tender, soft (and obese) Extremities: no calf tenderness, + pertinent finding (lipidemia, chronic venous stasis changes and crusted dry skin with small area of open wound left lateral leg) Neurologic/Psychiatric: alert, normal mood/affect, + pertinent finding ( expressive aphasia, no motor deficits) Skin: normal color, warm/dry, no rash Laboratory Results Last 24 Hours Test 01/21/17 02:50 White Blood Count 5.78 K/uL Red Blood Count 4.08 M/uL Hemoglobin 13.0 g/dL Hematocrit 39.5 % Mean Corpuscular Volume 96.8 fL Mean Corpuscular Hemoglobin 31.9 pg Mean Corpuscular Hemoglobin Concent 32.9 g/dl Platelet Count 165 K/uL Mean Platelet Volume 11.3 fL Neutrophils (%) (Auto) 61.9 % Lymphocytes (%) (Auto) 27.7 % Monocytes (%) (Auto) 8.3 % Eosinophils (%) (Auto) 1.7 % Basophils (%) (Auto) 0.2 % Neutrophils # (Auto) 3.58 K/uL Lymphocytes # (Auto) 1.60 K/uL Monocytes # (Auto) 0.48 K/uL Eosinophils # (Auto) 0.10 K/uL Basophils # (Auto) 0.01 K/uL RDW Standard Deviation 54.7 fL RDW Coefficient of Variation 15.7 % Immature Granulocyte % (Auto) 0.2 % Immature Granulocyte # (Auto) 0.01 K/uL Prothrombin Time 10.5 SECONDS Prothromb Time International Ratio 1.0 Activated Partial Thromboplast Time 23.6 SECONDS Partial Thromboplastin Ratio 0.9 Sodium Level 139 mmol/L Potassium Level 4.6 mmol/L Chloride Level 105 mmol/L Carbon Dioxide Level 29 mmol/L Anion Gap 5.0 mmol/L Blood Urea Nitrogen 13 mg/dl Creatinine 1.10 mg/dl Est Creatinine Clear Calc Drug Dose 73.3 ml/min Estimated GFR () 60.6 Estimated GFR (Non- 52.3 BUN/Creatinine Ratio 11.6 Random Glucose 119 mg/dl Calcium Level 8.4 mg/dl Triglycerides Level 163 mg/dl Cholesterol Level 144 mg/dl HDL Cholesterol 42 mg/dl LDL Cholesterol, Calculated 69 mg/dl VLDL Cholesterol, Calculated 33 mg/dl Cholesterol/HDL Ratio 3.4 Assessment and Plan 66 y/o F Hx RA, HTN, morbid obesity. Pt presents with acute expressive aphasia. She is having considerable difficulty with word finding although her comprehension appears only minimally impaired. She denies unilateral weakness, visual disturbances, headache, CP, SOB or palpitations. She has no history of prior CVA. A CT obtained in the ER reveals an acute L temporoparietal CVA. The pt was well out of the window for TPA on arrival to the hospital. 1) CVA - findings are confirmed on CTA - No stenosis in head or neck on CTA head /neck. Repeat CT head today unchanged. Pt declines MRI. ECHO pending with bubble study. Pt absolutely would decline a NATE-very scared of all procedures. No A-fib on tele but suspect this could be embolic or paradoxical embolism. -continue Neuro checks -Appreciate Neuro consult -continue ASA and Statin -will need assistant terminal manager cardiac monitoring to assess for A-fib if none here and no thrombus seen on TTE -PT/OT/Speech evaluations appreciated: 1.Continuation of current diet regular with thins 2.Safe swallow strategies (small bites, small, sips, slow rate) 3.Intermittent supervision with meals secondary to impulsivity 4.BOOTH OPERATOR will continue to follow and treat for receptive and receptive deficits 3-5 times a week while pt. remains in this facility. 5.Out patient speech therapy will be imperative for pt. to recover from speech deficits. 2) RA - cont Prednisone but should be 9mg daily-changed this - - Can resume MTx on DC 3) HTN - Atenolol held in setting of CVA for permissive HTN 4) Obesity - would benefit from nutritional counseling Full code - Heparin prophylaxis
--- NOTE | 2017-01-21 20:20 | ECHOCARDIOGRAM REPORT ---
*NOTICE TO RECEIVING [employer]ENCY This information is strictly Confidential and protected under [place] law. [place] law prohibits you from making any further disclosure of this information unless further disclosure is expressly permitted by the written consent of the person to whom it pertains or is authorized by law. A general authorization for the release of medical or other information is not sufficient for this purpose. Hospital accepts no responsibility if the information is made available to any other person, INCLUDING THE PATIENT. Interpretation Summary * Name: DONNELL MOBLEY Study Date: 01/21/2017 01:40 PM BP: 183/92 mmHg * Patient Location: .[facility]\S\N285\S\2 HR: 88 * : 1950 (M/d/yyyy) Gender: Female Height: 65 in * Age: 66 yrs Ethnicity: CA Weight: 312 lb * Ordering Physician: Robyn Carpio * Referring Physician: Self, Referred * Performed By: Colleen Parsons RCS * * Reason For Study: Cerebral Ischemia/ Embolus * BSA: 2.4 m2 * -- Conclusions -- * 1. Normal left ventricular size with hyperdynamic systolic function. EF 70-75%. No regional wall motion abnormalities. No left ventricular hypertrophy. Type 1 diastolic dysfunction. * 2. No visualized ASD or PFO via 2D imaging or color Doppler, however technically difficult study. No significant right to left inter atrial shunt noted following agitated saline injection. * 3. Sclerotic aortic valve without significant stenosis. * 4. Technically difficult study. * 5. No prior study available for comparison. Procedure Details * A saline contrast injection was performed to assess for cardiac shunting. * The injection was performed through an intravenous line in the right arm. * A total of 18 cc of agitated saline was given. Left Ventricle * Normal left ventricular size with hyperdynamic systolic function. EF 70-75%. No regional wall motion abnormalities. No left ventricular hypertrophy. Type 1 diastolic dysfunction. Right Ventricle * The right ventricle is normal in size and function. * The right ventricular systolic function is normal as assessed by tricuspid annular plane systolic excursion (TAPSE) (normal >1.5 cm). Atria * The left atrial size is normal. * Right atrial size is normal. * No visualized ASD or PFO via 2D imaging or color Doppler, however technically difficult study. No significant right to left inter atrial shunt noted following agitated saline injection. Mitral Valve * There is mild to moderate mitral annular calcification. * Significant mitral regurgitation is absent. Tricuspid Valve * The tricuspid valve is not well visualized. * There is no tricuspid stenosis. * Significant tricuspid regurgitation is absent. Aortic Valve * Sclerotic aortic valve without significant stenosis. * There is no significant aortic regurgitation. Pulmonic Valve * The pulmonary valve is inadequately visualized, but the Doppler data is adequate for interpretation. * There is no pulmonic valvular stenosis. * There is no significant pulmonary regurgitation. Great Vessels * The aortic root is normal size. * Ascending aorta of normal dimension Pericardium/Pleural * There is no pericardial effusion. Great Vessels * IVC not well visualized. MMode 2D Measurements and Calculations IVSd 1.0 cm LVIDd 4.8 cm LVIDs 3.0 cm LVPWd 1.1 cm IVS/LVPW 0.96 FS 38.8 % EDV(Teich) 109.1 ml ESV(Teich) 33.8 ml EF(Teich) 69.0 % EDV(cubed) 112.7 ml ESV(cubed) 25.9 ml EF(cubed) 77.0 % LV mass(C)d 188.2 grams LV mass(C)dI 78.7 grams/m\S\2 SV(Teich) 75.3 ml SI(Teich) 31.5 ml/m\S\2 SV(cubed) 86.8 ml SI(cubed) 36.3 ml/m\S\2 Ao root diam 3.2 cm Ao root area 8.1 cm\S\2 asc Aorta Diam 3.0 cm LVOT diam 2.1 cm LVOT area 3.5 cm\S\2 EDV(MOD-sp4) 73.4 ml ESV(MOD-sp4) 21.1 ml EF(MOD-sp4) 71.3 % EDV(MOD-sp2) 57.8 ml ESV(MOD-sp2) 13.6 ml EF(MOD-sp2) 76.5 % SV(MOD-sp4) 52.4 ml SI(MOD-sp4) 21.9 ml/m\S\2 SV(MOD-sp2) 44.2 ml SI(MOD-sp2) 18.5 ml/m\S\2 Doppler Measurements and Calculations MV E max pérez 59.9 cm/sec MV A max pérez 80.9 cm/sec MV E/A 0.74 MV dec time 0.21 sec Ao V2 max 133.3 cm/sec Ao max PG 7.1 mmHg Ao max PG (full) 1.1 mmHg CY(V,A) 3.2 cm\S\2 CY(V,D) 3.2 cm\S\2 LV V1 max PG 6.0 mmHg LV V1 max 122.9 cm/sec
[2017-01-22] VITALS (10 sets, daily range): BP systolic 129–183; BP diastolic 80–88; PULSE 74–82; TEMP 36.6–37.1; O2SAT 94–97
[2017-01-22] MEDS: HEPARIN SOD 5000 UNIT/0.5 ML CARP SQ SCH ×3 (05:38→21:12)
[2017-01-22 07:01] LABS: BASO % 0.5 %; BASO ABS # 0.03 K/uL (0-0.2); EOS % 1.1 %; HEMATOCRIT 39.2 % (37-47); IG% 0.4 %; LYMPH % 21.4 %; LYMPH ABS # 1.19 K/uL (1.2-3.4); MEAN CELL VOLUME 94.5 fL (80-100); MEAN CORPUSCULAR HEMOGLOBIN 31.6 pg (25-34); MEAN CORPUSCULAR HGB CONC 33.4 g/dl (32-36); MEAN PLATELET VOLUME 11.1 fL (7.4-10.4); MONO % 7.4 %; NEUT % 69.2 %; PLATELET COUNT 158 K/uL (130-400); RED BLOOD COUNT 4.15 M/uL (4.2-5.4); WHITE BLOOD COUNT 5.55 K/uL (4.8-10.8)
[2017-01-22 07:36] LABS: BUN/CREATININE RATIO 13.6 (10-20); CALCIUM 8.7 mg/dl (8.5-10.1); MAGNESIUM 1.8 mg/dl (1.8-2.4); POTASSIUM 4.2 mmol/L (3.5-5.1)
[2017-01-22 07:41] LABS: COMPLETE YES
[2017-01-22] MEDS: ASPIRIN 325 MG ECTAB PO SCH (08:03)
[2017-01-22] MEDS: ATORVASTATIN 40 MG TAB PO SCH (08:04)
[2017-01-22] MEDS: PREDNISONE PO SCH ×2 (08:04)
--- NOTE | 2017-01-22 10:51 | Neurology Progress Notes ---
Neurology Progress Note Date of Service Jan 22, 2017. Subjective Follow-up for stroke The patient continues to exhibit significant difficulty with word finding and perhaps some comprehension as well. She is sitting up in a chair across from a close friend who is also present during the time of my assessment of the patient this morning. She is aware that she is having some difficulty with her speech but does not seem very frustrated. She continues to smile and sometimes laughs with attempts at communication. She would like to get back to work as soon as possible. 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 She is having some problems with calculation as well. See examination below. The patient did complete a follow-up CT of the head as she will not tolerate MRI due to severe claustrophobia. I reviewed the images as well as a radiologist 's interpretation of this test. There has been no change in the previously identified left parietal lobe infarct. No hemorrhagic transformation or cytotoxic edema. Recently completed a transthoracic echocardiogram unremarkable. No PFO. Normal ejection fraction. No cardioembolic source. Objective Date Time Temp Pulse Resp B/P (MAP) Pulse Ox O2 Delivery O2 Flow Rate FiO2 01/22/17 08:02 36.7 78 20 129/82 (98) 97 Room Air 01/22/17 08:00 95 Room Air 01/22/17 04:00 Room Air 01/22/17 04:00 36.6 74 16 138/87 (104) Room Air 01/22/17 00:00 Room Air 01/21/17 23:53 36.7 79 20 143/84 (103) 96 Room Air 01/21/17 20:12 36.9 91 18 155/105 (122) 96 Room Air 01/21/17 20:00 95 Room Air 01/21/17 16:00 95 Room Air 01/21/17 15:42 37.2 84 18 133/83 (100) 95 Room Air 01/21/17 12:30 Room Air 01/21/17 11:30 36.6 85 20 174/105 (128) 97 183/92 (122) Last 24 Hours Test 01/22/17 06:32 White Blood Count 5.55 K/uL Red Blood Count 4.15 M/uL Hemoglobin 13.1 g/dL Hematocrit 39.2 % Mean Corpuscular Volume 94.5 fL Mean Corpuscular Hemoglobin 31.6 pg Mean Corpuscular Hemoglobin Concent 33.4 g/dl Platelet Count 158 K/uL Mean Platelet Volume 11.1 fL Neutrophils (%) (Auto) 69.2 % Lymphocytes (%) (Auto) 21.4 % Monocytes (%) (Auto) 7.4 % Eosinophils (%) (Auto) 1.1 % Basophils (%) (Auto) 0.5 % Neutrophils # (Auto) 3.84 K/uL Lymphocytes # (Auto) 1.19 K/uL Monocytes # (Auto) 0.41 K/uL Eosinophils # (Auto) 0.06 K/uL Basophils # (Auto) 0.03 K/uL RDW Standard Deviation 54.2 fL RDW Coefficient of Variation 15.7 % Immature Granulocyte % (Auto) 0.4 % Immature Granulocyte # (Auto) 0.02 K/uL Red Blood Cell Morphology Unremarkable Sodium Level 139 mmol/L Potassium Level 4.2 mmol/L Chloride Level 104 mmol/L Carbon Dioxide Level 30 mmol/L Anion Gap 5.0 mmol/L Blood Urea Nitrogen 14 mg/dl Creatinine 1.00 mg/dl Est Creatinine Clear Calc Drug Dose 79.2 ml/min Estimated GFR () 68.0 Estimated GFR (Non- 58.7 BUN/Creatinine Ratio 13.6 Random Glucose 119 mg/dl Calcium Level 8.7 mg/dl Magnesium Level 1.8 mg/dl Exam: As described above, the patient is sitting up in a chair. She appears comfortable. She is alert and oriented to person and hospital but continues to have significant difficulty with word finding/expressive speech. She is attentive although seems to have some problems with concentration as well likely related to her aphasia. She had difficulty with simple computations. Continues to have difficulty with object naming but did correctly name a pen but could not appropriately name specific parts of the object. He seemed to do well with discriminating left and right but did have problems following multistep commands. She correctly identified various fingers on both the left and right hand. Visual yang full to confrontation. Pupils equal round reactive to light and accommodation. Eye movements intact. There is no facial droop or facial asymmetry. Hearing intact. Tongue and palate midline. There is no pronator drift. There is no dysmetria with finger to nose or heel to powell. Gait and station are normal. Muscle strength and tone normal throughout. No abnormal movements observed. Current Inpatient Medications Medications (Trade) Dose Ordered Sig/Juan Route Start Time Stop Time Status Last Admin Dose Admin Ioversol (Optiray 320) 100 ml UD PRN IV 01/20/17 18:45 01/24/17 18:44 Heparin Sodium (Porcine) (Heparin Sq 5000 Unit/0.5ml) 5,000 unit Q8 SQ 01/21/17 06:00 02/20/17 05:59 01/22/17 05:38 5,000 UNIT Acetaminophen (Tylenol Tab) 650 mg Q4H PRN PO 01/20/17 20:45 02/19/17 20:44 01/21/17 11:19 650 MG Al Hydrox/Mg Hydrox/Simethicone (Maalox Max Susp) 15 ml Q4H PRN PO 01/20/17 20:45 02/19/17 20:44 Magnesium Hydroxide (Milk Of Magnesia Susp) 30 ml Q12H PRN PO 01/20/17 20:45 02/19/17 20:44 Ondansetron HCl (Zofran Inj) 4 mg Q6H PRN IV 01/20/17 20:45 02/19/17 20:44 Aspirin (Ecotrin Tab) 325 mg QAM PO 01/21/17 09:00 02/20/17 08:59 01/22/17 08:03 325 MG Polyethylene (Miralax Powder Packet) 17 gm DAILY PRN PO 01/20/17 20:45 02/19/17 20:44 Atorvastatin Calcium (Lipitor Tab) 40 mg QAM PO 01/21/17 09:00 02/20/17 08:59 01/22/17 08:04 40 MG Miscellaneous Information (Pharmacist Discharge Med Rec Consult) 1 ea UD PRN N/A 01/20/17 21:00 02/19/17 20:59 Folic Acid (Folvite Tab) 1 mg DAILY PO 01/21/17 09:00 02/20/17 08:59 01/22/17 08:03 1 MG Prednisone (PredniSONE TAB) 9 mg QAM PO 01/22/17 09:00 02/21/17 08:59 01/22/17 08:04 9 MG Impression Acute posterior left MCA stroke producing a mixed aphasia characterized by difficulty with both expressive and receptive speech. This patient seems to have problems with simple calculations as well. No left right confusion or finger anomia, however. She does not have an associated hemiparesis. Stroke etiology undetermined and could be broadly categorized as cryptogenic. Cardioembolism not excluded. Plan PT/OT/speech therapy Follow up with lab testing for thrombophilia when results available Continue with daily aspirin Consider outpatient cardiac Holter monitoring I do not think this patient will be able to return to work in her usual capacity in the near future given her ongoing language and cognitive dysfunction as a result of her recent stroke. This patient may follow-up with me in clinic No further recommendations at this time
--- NOTE | 2017-01-22 13:27 | Hospitalist Progress Note ---
Hospitalist Progress Note Date of Service Jan 22, 2017. Subjective Pt evaluation today including: conversation w/ patient, conversation w/ [facility] consultant (Neuro, Radiology, Rheum) Voiding: no voiding problems Pt really anxious to get home. SHe feels fine other than not being able to express herself. SHe is not eating much because she is upset about her condition. SHe has many friends and neighbors that will check on her. Her friend Joana present today is a IMPROVEMENT LEAD who will assist with coordinating for help to come to the house. Pt adamantly against going to acute rehab even if would qualify. Denies headache, no other concerns. All Other Systems: Reviewed and Negative Objective Vital Signs Date Time Temp Pulse Resp B/P (MAP) Pulse Ox O2 Delivery O2 Flow Rate FiO2 01/22/17 11:52 36.9 82 20 135/87 (103) 95 Room Air 01/22/17 08:02 36.7 78 20 129/82 (98) 97 Room Air 01/22/17 08:00 95 Room Air 01/22/17 04:00 Room Air 01/22/17 04:00 36.6 74 16 138/87 (104) Room Air 01/22/17 00:00 Room Air 01/21/17 23:53 36.7 79 20 143/84 (103) 96 Room Air 01/21/17 20:12 36.9 91 18 155/105 (122) 96 Room Air 01/21/17 20:00 95 Room Air 01/21/17 16:00 95 Room Air 01/21/17 15:42 37.2 84 18 133/83 (100) 95 Room Air 01/21/17 12:30 Room Air Physical Exam General Appearance: WD/WN, no apparent distress, + obese Eyes: + pertinent finding (right eye with large medial mass of sclera) ENT: hearing grossly normal, pharynx normal Neck: trachea midline Respiratory/Chest: lungs clear, normal breath sounds, no respiratory distress, no accessory muscle use Cardiovascular: regular rate, rhythm, no gallop, no murmur Abdomen: normal bowel sounds, non tender, soft Extremities: + pertinent finding (lipidemia, scaly skin) Neurologic/Psychiatric: alert, normal mood/affect, + pertinent finding (+ expressive aphasia, no motor deficits) Skin: no rash Laboratory Results Last 24 Hours Test 01/22/17 06:32 White Blood Count 5.55 K/uL Red Blood Count 4.15 M/uL Hemoglobin 13.1 g/dL Hematocrit 39.2 % Mean Corpuscular Volume 94.5 fL Mean Corpuscular Hemoglobin 31.6 pg Mean Corpuscular Hemoglobin Concent 33.4 g/dl Platelet Count 158 K/uL Mean Platelet Volume 11.1 fL Neutrophils (%) (Auto) 69.2 % Lymphocytes (%) (Auto) 21.4 % Monocytes (%) (Auto) 7.4 % Eosinophils (%) (Auto) 1.1 % Basophils (%) (Auto) 0.5 % Neutrophils # (Auto) 3.84 K/uL Lymphocytes # (Auto) 1.19 K/uL Monocytes # (Auto) 0.41 K/uL Eosinophils # (Auto) 0.06 K/uL Basophils # (Auto) 0.03 K/uL RDW Standard Deviation 54.2 fL RDW Coefficient of Variation 15.7 % Immature Granulocyte % (Auto) 0.4 % Immature Granulocyte # (Auto) 0.02 K/uL Red Blood Cell Morphology Unremarkable Sodium Level 139 mmol/L Potassium Level 4.2 mmol/L Chloride Level 104 mmol/L Carbon Dioxide Level 30 mmol/L Anion Gap 5.0 mmol/L Blood Urea Nitrogen 14 mg/dl Creatinine 1.00 mg/dl Est Creatinine Clear Calc Drug Dose 79.2 ml/min Estimated GFR () 68.0 Estimated GFR (Non- 58.7 BUN/Creatinine Ratio 13.6 Random Glucose 119 mg/dl Calcium Level 8.7 mg/dl Magnesium Level 1.8 mg/dl Assessment and Plan 66 y/o F Hx HTN, morbid obesity, and 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 Pt presents with acute expressive aphasia. She is having considerable difficulty with word finding although her comprehension appears only minimally impaired. She denies unilateral weakness, visual disturbances, headache, CP, SOB or palpitations. She has no history of prior CVA. A CT obtained in the ER reveals an acute L temporoparietal CVA. The pt was well out of the window for TPA on arrival to the hospital. 1) CVA - findings are confirmed on CTA - No stenosis or evidence of vasculitis in head or neck on CTA head/neck. Repeat CT head 24 hrs later unchanged. Pt declines MRI due to severe claustrophobia. I discussed the case with Radiology on phone w/ Dr. Delgado who reconfirms today that there is no evidence of vasculitis on the head CTA. ECHO with bubble study negative. No A-fib on tele but suspect this could be embolic or cryptogenic. Pt now willing to consider a NATE, and is willing to talk to Cardiology about it. I discussed the case at length today with her Workforce Planning Analyst Dr. Neal who will come to see the pt in the hospital. She advised that as long as CTA Head does not show any evidence of vasculitis, then not likely cause of her CVA. ESR not recommended to be tested at this point as per Rheum because if it is elevated, it wouldn't necessarily make the picture clearer. -continue Neuro checks -Appreciate Neuro consult-discussed case with Dr. Kaur again today who agrees there are no signs or symptoms at all of cerebral vasculitis, and that this is either embolic or cryptogenic -continue ASA and Statin -Consult to Cardiology to discuss getting NATE -will need prison cardiac monitoring to assess for A-fib if none here (and if she ends up declining NATE) -PT/OT/Speech evaluations appreciated: 1.Continuation of current diet regular with thins 2.Safe swallow strategies (small bites, small, sips, slow rate) 3.Intermittent supervision with meals secondary to impulsivity 4.MEDICAL FEE CLERK will continue to follow and treat for receptive and receptive deficits 3-5 times a week while pt. remains in this facility. 5.Out patient speech therapy will be imperative for pt. to recover from speech deficits. 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 Rodolfo Neal. Previously on induction therapy with 2 months of high dose prednisone and rituximab, now on maintenance therapy with low dose prednisone and MTX. Also followed by Drs. Walton and Oliver of Ophthalmology-all stable. No evidence of AUDITOR IN CHARGE vasculitis. - cont Prednisone 9mg daily - Can resume MTx on DC -continue routine f/u with Rheum, Ophthalmology -check UA to r/o vasculitis in tract -should be noted that previous notes and H&P noted her to have RA but confirmed in outpt records and with her Workforce Planning Analyst on the phone that this diagnosis was entered in ERROR -Rheumatology Dr. Neal says she will come by to make a social visit 3) HTN/Chronic diastolic CHF - Atenolol held in setting of CVA for permissive HTN. No signs of fluid overload -restart atenolol in future 4) Obesity - would benefit from nutritional counseling Full code - Heparin prophylaxis Dispo- to home after evaluation complete
[2017-01-22 15:28] LABS: URINE APPEARANCE CLEAR (CLEAR); URINE BILIRUBIN NEG (NEG); URINE COLOR YELLOW; URINE EPITHELIAL CELL AUTO 0-5 /lpf (0-5); URINE NITRITE NEG (NEG); URINE SPECIFIC GRAVITY 1.006 (1.000-1.030); UROBILINOGEN NEG (NEG); ZZUR CULT IF INDIC CLEAN CATCH YES
[2017-01-22 15:29] LABS: MANUAL MICROSCOPIC REQUIRED? NO; REVIEW REQ? NO
[2017-01-22] MEDS: CIPROFLOXACIN 500 MG TAB PO SCH (21:09)
[2017-01-23] VITALS (11 sets, daily range): BP systolic 131–152; BP diastolic 86–98; PULSE 77–90; TEMP 36.5–37.1; O2SAT 94–98
[2017-01-23] MEDS: HEPARIN SOD 5000 UNIT/0.5 ML CARP SQ SCH ×3 (06:23→21:10)
[2017-01-23 07:53] LABS: BASO % 0.2 %; BASO ABS # 0.01 K/uL (0-0.2); COMPLETE YES; EOS % 1.9 %; HEMATOCRIT 39.7 % (37-47); LYMPH % 30.6 %; LYMPH ABS # 1.61 K/uL (1.2-3.4); MEAN CELL VOLUME 96.6 fL (80-100); MEAN CORPUSCULAR HEMOGLOBIN 31.6 pg (25-34); MEAN CORPUSCULAR HGB CONC 32.7 g/dl (32-36); MONO % 11.6 %; NEUT % 55.7 %; PLATELET COUNT 152 K/uL (130-400); RED BLOOD COUNT 4.11 M/uL (4.2-5.4); WHITE BLOOD COUNT 5.26 K/uL (4.8-10.8)
[2017-01-23] MEDS: CIPROFLOXACIN 500 MG TAB PO SCH ×2 (08:04→21:03)
[2017-01-23] MEDS: ASPIRIN 325 MG ECTAB PO SCH (08:04)
[2017-01-23] MEDS: ATORVASTATIN 40 MG TAB PO SCH (08:04)
[2017-01-23] MEDS: PREDNISONE PO SCH ×2 (08:05)
[2017-01-23 08:31] LABS: BLOOD UREA NITROGEN 16 mg/dl (7-18); BUN/CREATININE RATIO 13.6 (10-20); CALCIUM 8.7 mg/dl (8.5-10.1); CARBON DIOXIDE 32 mmol/L (21-32); CHLORIDE 104 mmol/L (98-107); GLUCOSE 112 mg/dl (70-99); SODIUM 139 mmol/L (136-145)
[2017-01-23] MEDS ORDERED: MICONAZOLE NITRATE POWDER 43 GM EXT PRN (12:00)
[2017-01-23] MEDS ORDERED: NURSING VERBAL MED ORDER ONE (12:00)
[2017-01-23] MEDS ORDERED: CARBAMIDE PEROXIDE 6.5% 15 ML BTL OT ONE (13:55)
--- NOTE | 2017-01-23 14:14 | Hospitalist Progress Note ---
Hospitalist Progress Note Date of Service Jan 23, 2017. Subjective Pt evaluation today including: conversation w/ patient, physical exam Pt has c/o ears feeling full today, can't pop them. Otherwise no CP or palpitations, no SOB. Worked with Speech for a while today and did get frustrated towards the end with trying to write long sentences and repeat long phrases. No events on tele Neurologic: No weakness, No numbness/tingling All Other Systems: Reviewed and Negative Objective Vital Signs Date Time Temp Pulse Resp B/P (MAP) Pulse Ox O2 Delivery O2 Flow Rate FiO2 01/23/17 12:22 36.7 80 20 131/94 (106) 98 Room Air 01/23/17 12:00 97 Room Air 01/23/17 08:46 37.1 77 18 152/86 (108) 97 Room Air 01/23/17 08:00 98 Room Air 01/23/17 04:28 36.6 84 20 149/94 (112) 98 Room Air 01/23/17 04:00 95 Room Air 01/23/17 00:00 95 Room Air 01/22/17 23:29 36.9 80 18 132/85 (101) 95 Room Air 01/22/17 20:00 95 Room Air 01/22/17 19:42 37.1 80 20 146/80 (102) 95 Room Air 01/22/17 16:00 94 Room Air 01/22/17 15:36 36.6 81 18 183/88 (119) 96 Room Air Physical Exam General Appearance: WD/WN, no apparent distress, + obese Eyes: + pertinent finding (OD with large medial scleral mass) ENT: + pertinent finding (R>L cerumen impaction, cannot visualize right TM, left TM partially visualized but appears normal with normal light reflex) Neck: trachea midline Respiratory/Chest: lungs clear, normal breath sounds, no respiratory distress, no accessory muscle use Cardiovascular: regular rate, rhythm, no edema, no gallop, no murmur Abdomen: normal bowel sounds, non tender, soft Extremities: no calf tenderness Neurologic/Psychiatric: alert, normal mood/affect Skin: no rash Laboratory Results Last 24 Hours Test 01/22/17 15:10 01/23/17 07:35 01/23/17 08:37 Urine Color YELLOW Urine Appearance CLEAR Urine pH 7.0 Urine Specific [place] 1.006 Urine Protein NEG Urine Glucose (UA) NEG Urine Ketones NEG Urine Occult Blood NEG Urine Nitrite NEG Urine Bilirubin NEG Urine Urobilinogen NEG Urine Leukocyte Esterase MODERATE Urine WBC (Auto) 10-30 /hpf Urine RBC (Auto) 0-4 /hpf Urine Hyaline Casts (Auto) 0 /lpf Urine Epithelial Cells (Auto) 0-5 /lpf Urine Bacteria (Auto) 4+ White Blood Count 5.26 K/uL Red Blood Count 4.11 M/uL Hemoglobin 13.0 g/dL Hematocrit 39.7 % Mean Corpuscular Volume 96.6 fL Mean Corpuscular Hemoglobin 31.6 pg Mean Corpuscular Hemoglobin Concent 32.7 g/dl Platelet Count 152 K/uL Mean Platelet Volume 11.0 fL Neutrophils (%) (Auto) 55.7 % Lymphocytes (%) (Auto) 30.6 % Monocytes (%) (Auto) 11.6 % Eosinophils (%) (Auto) 1.9 % Basophils (%) (Auto) 0.2 % Neutrophils # (Auto) 2.93 K/uL Lymphocytes # (Auto) 1.61 K/uL Monocytes # (Auto) 0.61 K/uL Eosinophils # (Auto) 0.10 K/uL Basophils # (Auto) 0.01 K/uL RDW Standard Deviation 55.7 fL RDW Coefficient of Variation 15.8 % Immature Granulocyte % (Auto) 0.0 % Immature Granulocyte # (Auto) 0.00 K/uL Sodium Level 139 mmol/L Potassium Level mmol/L 4.3 mmol/L Chloride Level 104 mmol/L Carbon Dioxide Level 32 mmol/L Anion Gap 3.0 mmol/L Blood Urea Nitrogen 16 mg/dl Creatinine 1.20 mg/dl Est Creatinine Clear Calc Drug Dose 65.8 ml/min Estimated GFR () 54.5 Estimated GFR (Non- 47.1 BUN/Creatinine Ratio 13.6 Random Glucose 112 mg/dl Calcium Level 8.7 mg/dl Assessment and Plan 66 y/o F Hx HTN, morbid obesity, and 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 Pt presents with acute expressive aphasia. She is having considerable difficulty with word finding although her comprehension appears only minimally impaired. She denies unilateral weakness, visual disturbances, headache, CP, SOB or palpitations. She has no history of prior CVA. A CT obtained in the ER reveals an acute L temporoparietal CVA. The pt was well out of the window for TPA on arrival to the hospital. 1) CVA - findings are confirmed on CTA - No stenosis or evidence of vasculitis in head or neck on CTA head/neck. Repeat CT head 24 hrs later unchanged. Pt declines MRI due to severe claustrophobia. I discussed the case with Radiology on phone w/ Dr. Delgado who reconfirms that there is no evidence of vasculitis on the head CTA. ECHO with bubble study negative. No A-fib on tele but suspect this could be embolic or cryptogenic. I discussed the case at length today with her Manager Administrative Dr. Neal who came on a social visit to see the pt in the hospital. She advised that as long as CTA Head does not show any evidence of vasculitis, then not likely cause of her CVA. ESR not recommended to be tested at this point as per Rheum because if it is elevated, it wouldn't necessarily make the picture clearer. -continue Neuro checks -Appreciate Neuro consult-discussed case with Dr. Kaur again who agrees there are no signs or symptoms at all of cerebral vasculitis, and that this is either embolic or cryptogenic -continue ASA and Statin - NATE planned for Tuesday-Cardiology aware -will need shelter cardiac monitoring to assess for A-fib if none here and if no thrombus seen on ECHO -PT/OT/Speech evaluations appreciated: 1.Continuation of current diet regular with thins 2.Safe swallow strategies (small bites, small, sips, slow rate) 3.Intermittent supervision with meals secondary to impulsivity 4.MIDDLE SCHOOL TEACHER will continue to follow and treat for receptive and receptive deficits 3-5 times a week while pt. remains in this facility. 5.Out patient speech therapy will be imperative for pt. to recover from speech deficits. 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 Rodolfo Neal. Previously on induction therapy with 2 months of high dose prednisone and rituximab, now on maintenance therapy with low dose prednisone and MTX. Also followed by Drs. Walton and Oliver of Ophthalmology-all stable. No evidence of DIRECTIONAL DRILLER vasculitis. UA without blood, but does show UTI - cont Prednisone 9mg daily - Can resume MTx on Fridays (missed her dose this past Fri while hospitalized) -continue Folic acid 1 mg daily -continue routine f/u with Rheum, Ophthalmology -should be noted that previous notes and H&P noted her to have RA but confirmed in outpt records and with her Manager Administrative on the phone that this diagnosis was entered in ERROR 3) HTN/Chronic diastolic CHF - Atenolol held in setting of CVA for permissive HTN. No signs of fluid overload -restart atenolol in future if needed 4) Obesity - would benefit from nutritional counseling 5) Cerumen impaction R>L -Debrox drops and ear flush 6) UTI- abnormal UA and in setting of cryptogenic CVA, not sure if related or could be asymptomatic bacteriuria, however I am inclined to treat as she is immunosuppressed -continue Cipro 500mg po bid x 7 days -follow final Ur cx result Full code - Heparin prophylaxis Dispo- to home after evaluation complete
[2017-01-23] MEDS ORDERED: LORAZEPAM INJ 0.5 MG in SYRINGE 0.25 ML IV PRN (14:15)
[2017-01-24] VITALS (12 sets, daily range): BP systolic 110–205; BP diastolic 68–114; PULSE 65–104; TEMP 36.5–37; O2SAT 92–100
[2017-01-24 06:33] LABS: BASO % 0.2 %; BASO ABS # 0.01 K/uL (0-0.2); COMPLETE YES; EOS % 1.6 %; HEMATOCRIT 40.2 % (37-47); IG% 0.2 %; LYMPH % 34.2 %; LYMPH ABS # 1.95 K/uL (1.2-3.4); MEAN CELL VOLUME 97.6 fL (80-100); MEAN CORPUSCULAR HEMOGLOBIN 31.1 pg (25-34); MEAN CORPUSCULAR HGB CONC 31.8 g/dl (32-36); MEAN PLATELET VOLUME 11.1 fL (7.4-10.4); MONO % 10.2 %; NEUT % 53.6 %; PLATELET COUNT 170 K/uL (130-400); RED BLOOD COUNT 4.12 M/uL (4.2-5.4); WHITE BLOOD COUNT 5.71 K/uL (4.8-10.8)
[2017-01-24] MEDS: HEPARIN SOD 5000 UNIT/0.5 ML CARP SQ SCH (06:33)
[2017-01-24 06:39] LABS: PROTHROMBIN TIME (PATIENT) 10.7 SECONDS (9.0-12.0)
[2017-01-24 06:58] LABS: CALCIUM 8.4 mg/dl (8.5-10.1); CREATININE 1.3 mg/dl (0.60-1.20); MAGNESIUM 1.9 mg/dl (1.8-2.4); POTASSIUM 3.8 mmol/L (3.5-5.1)
[2017-01-24] MEDS ORDERED: CARBAMIDE PEROXIDE 6.5% 15 ML BTL OT SCH (09:00)
[2017-01-24] MEDS ORDERED: MIDAZOLAM HCL 1 MG/ML 2ML VIAL ONE ×2 (10:37)
[2017-01-24] MEDS ORDERED: MEPERIDINE HCL 50 MG/ML CARP ONE (10:37)
[2017-01-24] MEDS ORDERED: BENZOCAIN/TETRACA/BUTAM SPRAY 200 APPLN/20 GM SPRY ONE (10:38)
[2017-01-24] MEDS ORDERED: CANNULA ONE ×2 (10:38)
--- NOTE | 2017-01-24 11:40 | Procedure Note ---
Pre-Mod Sedation Assessment General Date of Moderate Sedation: Jan 24, 2017. Vital Signs: Vital Signs Past 12 Hours Date Time Temp Pulse Resp B/P (MAP) Pulse Ox O2 Delivery O2 Flow Rate FiO2 01/24/17 08:00 96 Room Air 01/24/17 07:16 37.0 65 18 122/76 (91) 92 Room Air 01/24/17 04:00 36.5 75 16 153/94 (113) 98 Room Air 01/24/17 04:00 Room Air 01/24/17 01:39 89 16 185/87 96 Room Air 01/24/17 00:00 Room Air Review Cardiovascular: regular rate, rhythm Abdomen: soft Lungs: lungs clear Airway Class: II Pre-Sedation Airway Assessment Oral Cavity: Dental Abnormalities, WNL Able to Visualize Vocal Cords: No Short Thick Neck: No Hx of Sleep Apnea: No Smoking Status: Never Smoker Mallampati Classification: Class II ASA Classification: Class II Procedure Planning Contraindications-for Mod Sed: None Yes Notes The planned sedation has been discussed with the patient and consent obtained. I have identified the patient, determined the appropriateness of sedation and have assessed the patient immediately prior to the procedure. All medicine(s) and interventions are by my order.
--- NOTE | 2017-01-24 11:41 | Procedure Note ---
Post-Mod Sedation Assessment General Date of Moderate Sedation Jan 24, 2017. Vital Signs: Vital Signs Past 12 Hours Date Time Temp Pulse Resp B/P (MAP) Pulse Ox O2 Delivery O2 Flow Rate FiO2 01/24/17 08:00 96 Room Air 01/24/17 07:16 37.0 65 18 122/76 (91) 92 Room Air 01/24/17 04:00 36.5 75 16 153/94 (113) 98 Room Air 01/24/17 04:00 Room Air 01/24/17 01:39 89 16 185/87 96 Room Air 01/24/17 00:00 Room Air Review - Discharge Criteria Vital Signs Stable: Yes Alert/Oriented/Conversant: Yes Returned to Baseline Mental St: Yes Nausea Absent/Minimal: Yes Pain/Discomfort/Absent/Minimal: Yes Normal/Baseline Respirations: Yes Active Bleeding?: No Pt Received D/C Instructions: N/A Prescriptions Given: None Specific Proced. D/C Criteria Distal Pulses Present (Cardiac: N/A Groin site assessed-Card Cath: N/A Voided Prior To Discharge: N/A Discharged Patients Adult Escort/Transportation: N/A
--- NOTE | 2017-01-24 11:50 | Cardiology Procedure Brief Nt ---
Preliminary Cardiology Note Procedure Date Jan 24, 2017. Pre-Procedure Diagnosis CVA Post-Procedure Diagnosis same Procedure(s) Performed NATE Leather Patcher Soni Garibay Block Breaker Operator(s) Michael Hopkins RN, Gale Henry Estimated Blood Loss None Medication(s) Demerol 50 mg IVP Versed 4 mg IVP Preliminary Findings Normal LV function No LA appendage thrombus No PFO or ASD No aortic arch thrombus Recommendations NATE recovery Specimens None Complication(s) None Disposition
[2017-01-24] MEDS: ATORVASTATIN 40 MG TAB PO SCH (13:53)
[2017-01-24] MEDS: PREDNISONE PO SCH ×2 (13:53)
[2017-01-24] MEDS: ASPIRIN 325 MG ECTAB PO SCH (13:53)
[2017-01-24] MEDS: CIPROFLOXACIN 500 MG TAB PO SCH (13:53)
[2017-01-24] MEDS ORDERED: CPR500 PO (15:34)
[2017-01-24] MEDS ORDERED: LPT40 PO (15:34)
[2017-01-24] MEDS ORDERED: ASPEC81 PO (15:34)
--- NOTE | 2017-01-24 15:43 | Discharge Instructions ---
Discharge Instructions Date of Service Jan 24, 2017. 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 Instructions / Follow-Up Instructions / Follow-Up Medications: - LIPITOR: take once daily for secondary stroke prevention, statin that lowers cholesterol but also stabilizes plaques - ASPIRIN: 81mg daily, enteric coated - CIPRO: complete 5 more days for Klebsiella UTI, christianson-sensitive In summary, you were found to have a left middle cerebral artery ischemic stroke causing expressive aphasia (motor cortex for speech) etiology still unclear, no arrhythmias on monitor, no PFO on NATE, no evidence of vasculitis hypercoagulable work up pending, Dr. Mcclellna will have results in approximately a week you need to have a 30 day event monitor you need to take medications as prescribed for secondary stroke prevention follow up with speech therapy as outpatient FOLLOW UP - please call office of Dr. Mcclellan for follow up in one week to review hospitalization - please call office of Dr. Kaur for follow up in one month [phone] Risk Factors for Stroke: You can reduce your chances of stroke by working with your medical provider to adopt a healthy lifestyle. Some specific ways to lower your chance of stroke are: * If you are a smoker, now is the time to stop smoking cigarettes * If you are diabetic, improve the control of your blood sugars * Avoid excessive amounts of alcohol * Control high blood pressure * Lose weight if you are overweight * Be sure to lead an active lifestyle * Eat a healthy diet low in salt, cholesterol and fat You should know about other risk factors for stroke that you are unable to control. These include: * Age 55 years or older * Male gender * Certain racial groups: , or / * Family History of Stroke, Mini stroke or Heart Attack * Sickle Cell Disease Follow Up: It is important for you to keep your follow up appointments with your medical provider. Current Hospital Diet Patient's current hospital diet: AHA Diet (Heart Healthy) Discharge Diet Recommended Diet: AHA Diet (Heart Healthy) Pending Studies Studies pending at discharge: yes List of pending studies: hypercoagulable work up, results should be back in a week Laboratory Results Hemoglobin A1c Test 01/20/17 18:00 Range/Units Estimated Average Glucose 126 mg/dl Hemoglobin A1c 6.0 H 4.5-5.6 % Lipid Panel Test 01/21/17 02:50 Range/Units Triglycerides Level 163 H 0-150 mg/dl Cholesterol Level 144 0-200 mg/dl HDL Cholesterol 42 mg/dl Cholesterol/HDL Ratio 3.4 LDL Cholesterol, Calculated 69 mg/dl Medical Emergencies . Who to Call and When: Medical Emergencies: Call 911 immediately if you experience any of the following warning signs and symptoms of Stroke: * Sudden numbness or weakness of the face, arm or leg, especially on one side of the body * Sudden confusion, trouble speaking or understanding * Sudden trouble seeing in one or both eyes * Sudden trouble walking, dizziness, loss of balance or coordination * Sudden severe headache with no cause Do not delay calling 911 if you experience any warning signs or symptoms of a stroke. Delay in seeking medical attention may affect what treatments can be given to you. . Non-Emergent Contact Non-Emergency issues call your: Primary Care Provider, Neurologist Call Non-Emergent contact if: you have any medication questions . . "Provider Documentation" section prepared by Johnathon Bang. . Stroke Core Measures Reason no t-PA for Stroke: Treatment not indicated Reason no antithrom by day 2: Treatment provided - N/A Reason no antithrom at D/C: Treatment provided - N/A Reason no statin at D/C: Treatment provided - N/A Reason no anticoag w/a fib: Treatment not indicated VTE Core Measure Inpt VTE Proph given/why not?: Unfractionated heparin SQ PA Drug Monitoring Program Search Results: no issues identified
--- NOTE | 2017-01-24 16:01 | TEE ---
*NOTICE TO RECEIVING LIBERTARIAN AGENCY This information is strictly Confidential and protected under [place] law. [place] law prohibits you from making any further disclosure of this information unless further disclosure is expressly permitted by the written consent of the person to whom it pertains or is authorized by law. A general authorization for the release of medical or other information is not sufficient for this purpose. Hospital accepts no responsibility if the information is made available to any other person, INCLUDING THE PATIENT. Interpretation Summary * Name: DONNELL MOBLEY Study Date: 01/24/2017 10:48 AM BP: 185/87 mmHg * Patient Location: .MED\S\N285\S\2 HR: 90 * : 1950 (M/d/yyyy) Gender: Female Height: 65 in * Age: 66 yrs Ethnicity: CA Weight: 309 lb * Ordering Physician: Robyn Carpio * Referring Physician: Self, Referred * Performed By: Jeromy Peters RCS * * Reason For Study: CSOE * BSA: 2.4 m2 * -- Conclusions -- * Left ventricular systolic function is normal. * No regional wall motion abnormalities noted. * Ejection Fraction = 55-60%. * No PFO or ASD. * No left atrial appendage thrombus. * This was a single plane study as the NATE probe was fixed at 180 degrees. Procedure Details * NATE Probe #1 utilized for procedure. * The study was performed in Cardiopulmonary Department. * Time out was conducted by the physician, nurse, and health records technology teacher with positive identification of patient and procedure. * Informed consent for Transesophageal Echocardiogram was obtained prior to the procedure. * An intravenous line was placed. A topical anesthetic agent was used for oropharangeal anesthesia. A bite block was inserted. * The patient's vital signs, including blood pressure, heart rate, pulse oximetry and cardiac rhythm were monitored throughout the procedure . * Midazolam 4 mg administered for sedation. * Meperidine 50 mg administered for sedation. * A multifrequency, multiplane transesopheageal echocardiographic endoscope was inserted and manipulated in the standard fashion to achieve multiplane views. * The transesophageal probe was passed without difficulty. * Contrast injection with agitated saline was performed. * Limited views were obtained. * Probe insertion time 1118 Probe removal time 1133 * A 2D transesophageal echocardiogram was performed. * A 2D transesophageal echocardiogram with color flow Doppler was performed. * A 2D transesophageal echocardiogram with Doppler and color flow Doppler was performed. * This was a single plane study as the NATE probe was fixed at 180 degrees. Left Ventricle * The left ventricle is normal in size. * There is normal left ventricular wall thickness. * Left ventricular systolic function is normal. * Ejection Fraction = 55-60%. * No regional wall motion abnormalities noted. Right Ventricle * The right ventricle is not well visualized. Atria * The left atrium is mildly dilated. * No thrombus is detected in the left atrial appendage. * Right atrium not well visualized. * Injection of contrast documented no interatrial shunt. Mitral Valve * The mitral valve anatomy is normal. * There is no mitral valve stenosis. * Significant mitral regurgitation is absent. Tricuspid Valve * The tricuspid valve is not well visualized. * Significant tricuspid regurgitation is absent. Aortic Valve * The aortic valve is not well visualized. * The aortic valve opens well. * No hemodynamically significant valvular aortic stenosis. * There is no significant aortic regurgitation. Pulmonic Valve * The pulmonic valve is not well visualized. Great Vessels * The aortic root is normal size. * Minor atheromatous disease of the transverse and descending thoracic aorta. * The pulmonary is not well visualized. Pericardium * There is no pericardial effusion.
--- NOTE | 2017-01-24 18:38 | Pharmacy Progress Note ---
Pharmacist Stroke Counseling Date of Service Jan 24, 2017. Scope Pharmacy has been consulted to provide medication discharge counseling for this patient admitted with ischemic stroke as per the Pharmacist Discharge Counseling for Stroke Patients Protocol. Medications on Discharge New Medications: Aspirin (Aspirin EC Low Dose) 81 Mg Ectab 81 MG PO DAILY for 30 Days, #30 TABS 5 Refills Atorvastatin (Atorvastatin Calcium) 40 Mg Tab 40 MG PO QAM, #30 TAB 3 Refills Ciprofloxacin (Ciprofloxacin HCl) 500 Mg Tab 500 MG PO Q12, #10 TAB 0 Refills Continued Medications: Atenolol (Tenormin) 25 Mg Tab 25 MG PO DAILY, TAB Folic Acid (Folvite) 1 Mg Tab 1 MG PO DAILY, TAB Methotrexate (Methotrexate) 2.5 Mg Tab 7.5 MG PO DAILY Prednisone (Prednisone) 5 Mg Tab 5 MG PO DAILY, TAB Prednisone (Prednisone) 1 Mg Tab 4 MG PO DIRECTED, TAB Action The above medications, specifically ones for stroke treatment/prophylaxis, have been reviewed in detail with the patient and/or patient mortician supplies sales representative(s) prior to discharge. This includes indication, common adverse reactions, drug interactions, and medication administration. Medication counseling has been employed using the teach-back method to ensure understanding. Outcome The patient and/or patient mortician supplies sales representative(s) have demonstrated understanding of the medications. Please note, they are aware that the pharmacist will call them within 72 hours post-discharge to confirm that the appropriate medications are being taken and answer any further medication related questions the patient might have at that time. Contact information Individual to be contacted: patient or Joana (her friend) Relationship to patient (if applicable): N/A Phone number: [phone] (patient); [phone] (friend Joana) Best time to call: not specified. Additional comments: Spoke at length with patient and her friend, Joana. Joana will be helping her after discharge and with her medications. I reviewed both new medications, aspirin and Lipitor, as well as ciprofloxacin. I counseled on their importance and highlighted some side effects. Patient was very kind but does have some difficulties with remembering / understanding (side effect of stroke). Patient' s friend listened closely and asked questions. I emphasized that patient should not stop taking medications without speaking to her physician. It was a pleasure to meet both ladies. Thank you for allowing pharmacy to be involved in the care of this patient. Please call [phone] or [phone] with any additional questions
[2017-01-28 01:37] LABS: ANTITHROMBINIII ACTIVITY** 92 % activity (80-120); B2 GLYCOPROTEIN IGA <9 SAU (<=20); B2 GLYCOPROTEIN IGG <9 SGU (<=20); B2 GLYCOPROTEIN IGM <9 SMU (<=20); LUPUS ANTICOAGULANT** TC36573X Negative (Negative); PROTEIN C ACTIVITY** TC 1777X 187 % (70-180)
[2017-01-28] MEDS ORDERED: METHOTREXATE 2.5 MG TAB PO SCH (09:00)
--- NOTE | 2017-01-28 14:07 | Pharmacy Progress Note ---
Pharmacist Post D/C Phone Note Date of phone call: Jan 28, 2017. Individual with whom pharmacist spoke to: Patient's friend, Joana The following questions were reviewed during the phone call with responses listed below each: Can you tell me the medications that you are currently taking as well as when and how you take each medication? - Medications Dose Route/Sig Max Daily Dose Days Date Category Ciprofloxacin HCl (Ciprofloxacin) 500 Mg Tab 500 Mg PO Q12 01/24/17 Rx Aspirin EC Low Dose (Aspirin) 81 Mg Ectab 81 Mg PO DAILY 30 01/24/17 Rx Atorvastatin Calcium (Atorvastatin) 40 Mg Tab 40 Mg PO QAM 01/24/17 Rx Methotrexate 2.5 Mg Tab 7.5 Mg PO DAILY 01/20/17 Reported Folvite (Folic Acid) 1 Mg Tab 1 Mg PO DAILY 01/20/17 Reported Prednisone 1 Mg Tab 4 Mg PO DIRECTED 01/20/17 Reported Tenormin (Atenolol) 25 Mg Tab 25 Mg PO DAILY 10/28/15 Reported Prednisone 5 Mg Tab 5 Mg PO DAILY 10/28/15 Reported When have you missed any doses of your medications? - None What side effects are you having from your medications? - None What questions do you have about your medications? - None What problems are you having obtaining your medications? - None, Joana picked up all new ones for patient When is your next appointment with your primary care doctor? - Lane, 02/01 @ 1130 with Jose Brantley As per the Pharmacist Discharge Counseling for Stroke Patients Protocol, this phone call has been completed within 72 hours of discharge. Thank you for allowing us to be involved in the care of this patient.
--- NOTE | 2017-02-07 08:35 | Discharge Summary ---
Discharge Summary Date of Service Jan 24, 2017. Discharge Summary Admission Date: Jan 20, 2017 at 20:50 Discharge Date: Jan 24, 2017 Discharge Disposition: Home Principal Diagnosis: Ischemic stroke with expressive aphasia Problems/Secondary Diagnoses: UTI - Klebsiella Microscopic polyangitis, scleritis Procedures: NATE Consultations: Neurology Medication Reconciliation New Medications: Aspirin (Aspirin EC Low Dose) 81 Mg Ectab 81 MG PO DAILY for 30 Days, #30 TABS 5 Refills Atorvastatin (Atorvastatin Calcium) 40 Mg Tab 40 MG PO QAM, #30 TAB 3 Refills Ciprofloxacin (Ciprofloxacin HCl) 500 Mg Tab 500 MG PO Q12, #10 TAB 0 Refills Continued Medications: Atenolol (Tenormin) 25 Mg Tab 25 MG PO DAILY, TAB Folic Acid (Folvite) 1 Mg Tab 1 MG PO DAILY, TAB Methotrexate (Methotrexate) 2.5 Mg Tab 7.5 MG PO DAILY Prednisone (Prednisone) 5 Mg Tab 5 MG PO DAILY, TAB Prednisone (Prednisone) 1 Mg Tab 4 MG PO DIRECTED, TAB Discharge Exam Patient doing quite well the day of discharge, speech returning to normal with just some occasional word finding with long sentences. Tolerated NATE well. She felt tired and wanted to stay overnight but told her to rest. Several hours later she was ready to go home. Discussed plan for follow up and outpatient speech therapy. Discussed diagnosis with patient's family at the bedside. Review of Systems: Eyes: No worsening of vision, No eye pain, No redness, No discharge, No diplopia, No problem reported ENT: No hearing loss, No unusual epistaxis, No nasal symptoms, No sore throat, No tinnitus, No dental problems, No trouble swallowing, No problem reported Respiratory: No cough, No sputum, No wheezing, No shortness of breath, No dyspnea on exertion, No dyspnea at rest, No hemoptysis, No problem reported Cardiovascular: No chest pain, No orthopnea, No PND, No edema, No claudication, No palpitations, No problem reported Abdomen: No pain, No nausea, No vomiting, No diarrhea, No constipation, No GI bleeding, No problem reported Musculoskeletal: No joint pain, No muscle pain, No swelling, No calf pain, No problem reported Genitourinary - Female: No dysuria, No urinary frequency, No urinary urgency , No urinary incontinence Neurologic: + problem reported (minimal expressive aphasia, only with long sentences), No memory loss, No paralysis, No weakness, No numbness/tingling, No vertigo, No balance problems Psychiatric: No depression symptoms, No anhedonism, No anxiety, No insomnia , No substance abuse, No problem reported Endocrine: No fatigue, No excessive thirst, No excessive urination, No problem reported Hematologic / Lymphatic: No abnormal bleeding/bruising, No clotting problems , No swollen lymph nodes, No night sweats, No problem reported Integumentary: No rash, No itch, No new/changing skin lesions, No color change, No bleeding, No problem reported Physical Exam: General Appearance: no apparent distress, + obese Eyes: normal inspection, EOMI, sclerae normal ENT: normal ENT inspection, hearing grossly normal, pharynx normal Neck: supple, no adenopathy, no JVD, trachea midline Respiratory/Chest: chest non-tender, lungs clear, normal breath sounds, no respiratory distress, no accessory muscle use Cardiovascular: regular rate, rhythm, no edema, no gallop, no JVD, no murmur , normal peripheral pulses Abdomen / GI: normal bowel sounds, non tender, soft, no organomegaly Extremities: normal inspection, no calf tenderness, normal capillary refill , no pedal edema, normal range of motion, pelvis stable Neurologic/Psychiatric: forest nursery supervisor II-XII nml as tested, no motor/sensory deficits , alert, normal mood/affect, normal reflexes, oriented x 3, + aphasia (some word finding but only with extended sentences, can carry normal converstation quite well) Skin: normal color, warm/dry, no rash Hospital Course 66 y/o F Hx HTN, morbid obesity, and 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 Pt presents with acute expressive aphasia. She is having considerable difficulty with word finding although her comprehension appears only minimally impaired. She denies unilateral weakness, visual disturbances, headache, CP, SOB or palpitations. She has no history of prior CVA. A CT obtained in the ER reveals an acute L temporoparietal CVA. The pt was well out of the window for TPA on arrival to the hospital. 1) CVA - findings are confirmed on CTA - No stenosis or evidence of vasculitis in head or neck on CTA head/neck. Repeat CT head 24 hrs later unchanged. Pt declines MRI due to severe claustrophobia. case was discussed with Radiology on phone w/ Dr. Delgado who reconfirms that there is no evidence of vasculitis on the head CTA. ECHO with bubble study negative. No A-fib on tele but suspect this could be embolic or cryptogenic. NATE with no PFO Case was discussed at length with her Conference Services Coordinator Dr. Neal who came on a social visit to see the pt in the hospital. She advised that as long as CTA Head does not show any evidence of vasculitis, then not likely cause of her CVA. ESR not recommended to be tested at this point as per Rheum because if it is elevated, it wouldn't necessarily make the picture clearer. -Appreciate Neuro consult-discussed case with Dr. Kaur again who agrees there are no signs or symptoms at all of cerebral vasculitis, and that this is either embolic or cryptogenic -continue ASA and Statin on discharge -will need nursing home cardiac monitoring to assess for A-fib if none here and if no thrombus seen on ECHO, set up for Holter Monitor -PT/OT/Speech evaluations appreciated: 1.Continuation of current diet regular with thins 2.Safe swallow strategies (small bites, small, sips, slow rate) 3.Intermittent supervision with meals secondary to impulsivity 4.ANALYTICAL DATA SCIENTIST will continue to follow and treat for receptive and receptive deficits 3-5 times a week while pt. remains in this facility. 5.Out patient speech therapy will be imperative for pt. to recover from speech deficits. 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 Farzana Neal. Previously on induction therapy with 2 months of high dose prednisone and rituximab, now on maintenance therapy with low dose prednisone and MTX. Also followed by Drs. Walton and Oliver of Ophthalmology-all stable. No evidence of ZONING ENGINEER vasculitis. UA without blood, but does show UTI - cont Prednisone 9mg daily - Can resume MTX on Fridays (missed her dose this past Tue while hospitalized) -continue Folic acid 1 mg daily -continue routine f/u with Rheum, Ophthalmology 3) HTN/Chronic diastolic CHF - Atenolol held in setting of CVA for permissive HTN. No signs of fluid overload -resume atenolol on discharge 4) Obesity - would benefit from nutritional counseling 5) Cerumen impaction R>L -Debrox drops and ear flush 6) UTI- Klebsiella sensitive to Cipro -continue Cipro 500mg po bid x 7 days total Full code - Heparin prophylaxis Total Time Spent: Greater than 30 minutes This includes examination of the patient, discharge planning, medication reconciliation, and communication with other providers. Discharge Instructions Please refer to the electronic Patient Visit Report (Discharge Instructions) for additional information. Follow-Up Dr. Mcclellan in one week Dr. Kaur in one month Speech therapy Dr. Neal as previously scheduled Additional Copies To Cholo Kaur M.D.; Farzana Neal MD; Pati Mcclellan MD
== END 2017-01-24 18:34 | disposition home or self-care (01) | DRG 65 ==
LOC: C.EDB 17:17 → C.MED 20:50 → ENRESERV 22:15
PROVIDERS: ADMIT Internal Medicine; ATTEND Internal Medicine
PROC: B246ZZ4 Ultrasonography of Right and Left Heart, Transesophageal (ICD-10-PCS; principal; 2017-01-24 10:00)
DX: I63.8 Other cerebral infarction (principal); Z68.43 Body mass index [BMI] 50.0-59.9, adult; M31.7 Microscopic polyangiitis; I50.32 Chronic diastolic (congestive) heart failure; N39.0 Urinary tract infection, site not specified; I69.320 Aphasia following cerebral infarction; H15.091 Other scleritis, right eye; E66.01 Morbid (severe) obesity due to excess calories; H61.23 Impacted cerumen, bilateral; I11.0 Hypertensive heart disease with heart failure; M06.9 Rheumatoid arthritis, unspecified; Z79.52 Long term (current) use of systemic steroids; Z79.899 Other long term (current) drug therapy

== ENCOUNTER → 2017-03-07 | Outpatient (CLI) | payer OTHER, MEDICARE ==
[~2017-03-07] MED LIST changes: +ASPEC81 PO; +CPR500 PO; -EYED IO; +FOLI1TAB7 PO; +LPT40 PO; +MTH25 PO; +PRD/1 PO
[2017-03-07 14:55] LABS: BASO % 0.1 %; BASO ABS # 0.01 K/uL (0-0.2); COMPLETE YES; EOS % 1.1 %; HEMATOCRIT 42.6 % (37-47); IG% 0.3 %; LYMPH % 29.5 %; LYMPH ABS # 2.11 K/uL (1.2-3.4); MEAN CELL VOLUME 97.3 fL (80-100); MEAN CORPUSCULAR HEMOGLOBIN 31.7 pg (25-34); MEAN CORPUSCULAR HGB CONC 32.6 g/dl (32-36); MEAN PLATELET VOLUME 11.7 fL (7.4-10.4); MONO % 4.9 %; NEUT % 64.1 %; PLATELET COUNT 195 K/uL (130-400); RED BLOOD COUNT 4.38 M/uL (4.2-5.4); WHITE BLOOD COUNT 7.16 K/uL (4.8-10.8)
[2017-03-07 15:25] LABS: ALT/SGPT 21 U/L (12-78); AST/SGOT 11 U/L (15-37)
== END | disposition home or self-care (01) ==
LOC: C.LAB1850 12:26
PROVIDERS: ATTEND Internal Medicine Rheumatology
DX: H15.091 Other scleritis, right eye (principal); Z51.81 Encounter for therapeutic drug level monitoring; Z79.899 Other long term (current) drug therapy; M31.7 Microscopic polyangiitis

== ENCOUNTER → 2017-05-05 | Outpatient (CLI) | payer OTHER, MEDICARE ==
[2017-05-05 13:09] LABS: BASO % 0.2 %; BASO ABS # 0.02 K/uL (0-0.2); COMPLETE YES; EOS % 1.4 %; HEMATOCRIT 44.6 % (37-47); IG% 0.2 %; LYMPH % 24.5 %; LYMPH ABS # 2.17 K/uL (1.2-3.4); MEAN CORPUSCULAR HEMOGLOBIN 31.9 pg (25-34); MEAN CORPUSCULAR HGB CONC 32.5 g/dl (32-36); MEAN PLATELET VOLUME 11.5 fL (7.4-10.4); MONO % 7.7 %; PLATELET COUNT 196 K/uL (130-400); RED BLOOD COUNT 4.55 M/uL (4.2-5.4); WHITE BLOOD COUNT 8.87 K/uL (4.8-10.8)
[2017-05-05 13:40] LABS: ALT/SGPT 19 U/L (12-78); CREATININE 1.09 mg/dl (0.60-1.20)
[2017-05-05 13:43] LABS: ALKALINE PHOSPHATASE 90 U/L (45-117); AST/SGOT 8 U/L (15-37)
== END | disposition home or self-care (01) ==
LOC: C.LAB1850 12:15
PROVIDERS: ATTEND Internal Medicine Rheumatology
DX: H15.009 Unspecified scleritis, unspecified eye (principal); Z79.899 Other long term (current) drug therapy; M31.7 Microscopic polyangiitis; R79.89 Other specified abnormal findings of blood chemistry; I63.9 Cerebral infarction, unspecified

== ENCOUNTER → 2017-07-07 | Outpatient (CLI) | payer OTHER, MEDICARE ==
[~2017-07-07] MED LIST changes: -FOLI1TAB7 PO; +FOLI1TAB8 PO
[2017-07-07 13:22] LABS: BASO % 0.3 %; BASO ABS # 0.02 K/uL (0-0.2); EOS % 0.7 %; EOS ABS # 0.05 K/uL (0-0.5); HEMATOCRIT 45.4 % (37-47); IG# 0.01 K/uL (0.00-0.02); LYMPH % 22.1 %; LYMPH ABS # 1.59 K/uL (1.2-3.4); MEAN CELL VOLUME 97.2 fL (80-100); MEAN CORPUSCULAR HEMOGLOBIN 32.1 pg (25-34); MONO % 6.8 %; MONO ABS # 0.49 K/uL (0.11-0.59); NEUT ABS # 5.05 K/uL (1.4-6.5); PLATELET COUNT 197 K/uL (130-400); RED CELL DISTRIBUTION WIDTH CV 14.1 % (11.5-14.5); RED CELL DISTRIBUTION WIDTH SD 49.9 fL (36.4-46.3); WHITE BLOOD COUNT 7.21 K/uL (4.8-10.8)
[2017-07-07 13:54] LABS: ALBUMIN 3.7 gm/dl (3.4-5.0); ALT/SGPT 22 U/L (12-78)
[2017-07-07 13:59] LABS: ALKALINE PHOSPHATASE 100 U/L (45-117); AST/SGOT 12 U/L (15-37); TOTAL PROTEIN 7.4 gm/dl (6.4-8.2)
== END | disposition home or self-care (01) ==
LOC: C.LAB1850 12:29
PROVIDERS: ATTEND Internal Medicine Rheumatology
DX: H15.009 Unspecified scleritis, unspecified eye (principal); M31.7 Microscopic polyangiitis; Z51.81 Encounter for therapeutic drug level monitoring; Z79.52 Long term (current) use of systemic steroids; Z79.899 Other long term (current) drug therapy; R76.8 Other specified abnormal immunological findings in serum; R76.0 Raised antibody titer

== ENCOUNTER → 2018-01-12 | Outpatient (CLI) | payer OTHER, MEDICARE ==
[~2018-01-12] MED LIST changes: -ASPEC81 PO; +ASPI-320 PO
== END | disposition home or self-care (01) ==
LOC: C.LAB1850 12:12
PROVIDERS: ATTEND Internal Medicine Rheumatology
DX: H15.009 Unspecified scleritis, unspecified eye (principal); M31.7 Microscopic polyangiitis; R76.8 Other specified abnormal immunological findings in serum; Z79.899 Other long term (current) drug therapy